=== PATIENT | female | born 1995 | race Caucasian/White ===

== ENCOUNTER → 2019-01-26 | Outpatient (CLI) | payer OTHER ==
--- NOTE | 2019-01-26 16:44 | Diagnostic Imaging Report ---
Indication: Left thigh pain AP and lateral views of the left femur are obtained. FINDINGS: No acute fracture or dislocation is identified. No abnormal lytic or sclerotic focus is seen, and there is no radiopaque foreign body. IMPRESSION: No acute abnormality. Dictated by: Dictated on workstation # [id number]
== END ==
LOC: RAD FS 16:27
PROVIDERS: ATTEND Family Medicine
DX: M79.652 Pain in left thigh (principal)
CPT/HCPCS: 73552

== ENCOUNTER 2019-10-12 21:44 | Emergency (ER) | payer MEDICAID, OTHER ==
[~2019-10-12] VITALS: Ht 167.7 cm; Wt 94.5 kg
[2019-10-12 22:15] LABS: BILIRUBIN,URINE NEGATIVE (NEGATIVE); CLARITY,URINE SLIGHTLY CLOUDY; COLOR,URINE YELLOW; GLUCOSE, URINE (UA) 2+ (NEGATIVE); HCG,QUALITATIVE URINE POSITIVE (NEGATIVE); KETONES,URINE TRACE (NEGATIVE); LEUKOCYTE ESTERASE ,URINE NEGATIVE (NEGATIVE); NITRITE,URINE NEGATIVE (NEGATIVE); PH,URINE 6.5 (5-9); PROTEIN,URINE NEGATIVE (NEGATIVE)
[2019-10-12 22:22] LABS: BACTERIA,URINE MODERATE /HPF; SQUAMOUS EPITHELIAL CELL,UR 25-50 /HPF
--- NOTE | 2019-10-12 22:50 | NUR ---
HEART TONES 154.
--- NOTE | 2019-10-12 23:03 | ED GU-Female ---
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 REPORTED THAT SHE HAS BEEN BEING TREATED FOR A UTI AND GIVEN 2 PILLS AND A CREAM THAT SHE DOES NOT KNOW THE NAME OF BY DOCTOR TOSCANO. THE UTI WAS A MONTH AGO SHE REPORTED. SHE STARTED HAVING A BURNING SENSATION THIS EVENING. Nursing Sepsis Screen: No Definite Risk Source: patient History of Present Illness Date Seen by Provider: Oct 12, 2019 Time Seen by Provider: 22:24 Initial Comments 24-year-old female presenting with complaints of burning pain that she noticed this evening when she tried getting in a cool bath. She has been using a cream in her vaginal area to help treat for rash and UTI. She is proximal 6 months and is to the end of December for her delivery. She denies any vaginal bleeding or discharge. She is not having any pain with urination. She has one spot at the top of her vagina that was causing a burning pain and burning sensation tonight when she tried to get in the bath. She denies any trauma or injury to her vaginal area. She did not bring th e cream with her and can not remember the name of the medicine. Allergies and Home Medications Allergies Coded Allergies: amoxicillin (Verified Allergy, Unknown, 10/12/19) Patient Home Medication List Home Medication List Reviewed: Yes Review of Systems Review of Systems Constitutional: No chills, No fever EENTM: no symptoms reported Respiratory: no symptoms reported Cardiovascular: no symptoms reported Gastrointestinal: no symptoms reported Genitourinary: see HPI Musculoskeletal: no symptoms reported Skin: see HPI Psychiatric/Neurological: No Symptoms Reported Past Sfhjffn-Tegmvj-Fyjtuz Hx Past Med/Social Hx: Reviewed Nursing Past Med/Soc Hx Patient Social History Recent Foreign Travel: No Contact w/Someone Who Travel: No Recent Infectious Disease Expo: No Recent Hopitalizations: No Physical Abuse: No Sexual Abuse: No Mistreated: No Fear: No Seasonal Allergies Seasonal Allergies: No Past Medical History Respiratory: No Cardiac: No Neurological: No : Yes Genitourinary: No Gastrointestinal: No Musculoskeletal: No Endocrine: No HEENT: No Integumentary: No Physical Exam Vital Signs Vital Signs - First Documented 10/12/19 22:15 Temp 36.8 Pulse 90 Resp 16 B/P (MAP) 113/65 (81) Pulse Ox 100 O2 Delivery Room Air Capillary Refill : Less Than 3 Seconds Height, Weight, BMI Height: '" Weight: lbs. oz. kg; 33.00 BMI Method: General Appearance: WD/WN, no apparent distress Gastrointestinal: normal bowel sounds, non tender, soft, other (gravid uterus with FHT in 150s) Pelvic: No discharge; lesions (3 mm superficial ulceration to left superior labia just above clitoral reid area. no drainage noted. no blisters or vesicles) Neurologic/Psychiatric: alert, normal mood/affect, oriented x 3 Progress/Results/Core Measures Suspected Sepsis Recent Fever Within 48 Hours: No Infection Criteria Present: None New/Unexplained Altered Menta: No Sepsis Screen: No Definite Risk SIRS Temperature: Pulse: 90 Respiratory Rate: 16 Blood Pressure 113 /65 Mean: 81 Results/Orders Lab Results Laboratory Tests Test 10/12/19 22:00 10/12/19 22:15 Range/Units Urine Color YELLOW Urine Clarity SLIGHTLY CLOUDY Urine pH 6.5 5-9 Urine Specific [place] 1.025 H 1.016-1.022 Urine Protein NEGATIVE NEGATIVE Urine Glucose (UA) 2+ H NEGATIVE Urine Ketones TRACE H NEGATIVE Urine Nitrite NEGATIVE NEGATIVE Urine Bilirubin NEGATIVE NEGATIVE Urine Urobilinogen 0.2 < = 1.0 MG/DL Urine Leukocyte Esterase NEGATIVE NEGATIVE Urine RBC (Auto) NEGATIVE NEGATIVE Urine RBC NONE /HPF Urine WBC 5-10 H /HPF Urine Squamous Epithelial Cells 25-50 H /HPF Urine Crystals NONE /LPF Urine Bacteria MODERATE H /HPF Urine Casts NONE /LPF Urine Mucus LARGE H /LPF Urine Culture Indicated YES Urine Test POSITIVE NEGATIVE My Orders Orders - CJ SINGH MD Ua Culture If Indicated (10/12/19 21:55) Hcg,Qualitative Urine (10/12/19 21:55) Neis Yariel Dna Urine Test (10/12/19 21:55) Chlamydia Trachomatis Urine (10/12/19 21:55) Urine Culture (10/12/19 22:00) Vital Signs/I&O 10/12/19 10/12/19 22:15 23:09 Temp 36.8 36.7 Pulse 90 88 Resp 16 16 B/P (MAP) 113/65 (81) 115/64 Pulse Ox 100 100 O2 Delivery Room Air Room Air Capillary Refill : Less Than 3 Seconds Blood Pressure Mean: 81 Progress Note : Progress Note d/w dr. Toscano and he thinks he was having the pt use a lotrisone cream so the skin might be thin from the medicine. have her use an antibiotic ointment to cover the area and help it heal. Tylenol for pain. Check with him in clinic for follow up. Culture pending on UA. She did have some glucose in her urine as well but had just drank a soda before coming to the ED. Departure Impression Primary Impression: Skin ulceration Qualified Codes: L98.491 - Non-pressure chronic ulcer of skin of other sites limited to breakdown of skin Additional Impression: Intrauterine , incidental Disposition: 01 HOME, SELF-CARE Condition: Stable Departure-Patient Inst. Decision time for Depature: 23:05 Referrals: RADHA TOSCANO MAXWELL MD (PCP/Family) Primary Care Physician Patient Instructions: Skin Abrasions (DC) Add. Discharge Instructions: Cover the area that sunshine with a thin layer of neosporin or triple antibiotic ointment 2-3 times a day to help it heal. Stop using the other cream that Dr. Toscano had previously prescribed. Call his office in the morning to arrange for a follow up appointment for a next available appointment to be seen for a check up. All discharge instructions reviewed with patient and/or family. Voiced understanding. CJ SINGH MD Oct 12, 2019 23:03
[2019-10-12 23:09] VITALS: BP 115/64
== END 2019-10-12 23:12 | disposition home or self-care (01) ==
LOC: EDUNIT# 21:44 → ER FS 21:47
DX: L98.491 Non-pressure chronic ulcer of skin of other sites limited to breakdown of skin (principal); Z33.1 Pregnant state, incidental; Z88.0 Allergy status to penicillin
CPT/HCPCS: 36415; 81000; 84703; 87088; 87491; 87591; 99282

== ENCOUNTER 2019-11-03 16:15 | Emergency (ER) | payer MEDICAID ==
[~2019-11-03] VITALS: Ht 167 cm; Wt 90.0 kg
[2019-11-03 16:41] LABS: CLARITY,URINE CLOUDY; COLOR,URINE YELLOW; PH,URINE 6.5 (5-9)
[2019-11-03 16:42] LABS: BACTERIA,URINE MODERATE /HPF; BILIRUBIN,URINE NEGATIVE (NEGATIVE); GLUCOSE, URINE (UA) TRACE (NEGATIVE); KETONES,URINE 1+ (NEGATIVE); LEUKOCYTE ESTERASE ,URINE 1+ (NEGATIVE); NITRITE,URINE NEGATIVE (NEGATIVE); PROTEIN,URINE TRACE (NEGATIVE)
--- NOTE | 2019-11-03 16:52 | ED GU-Female ---
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 REPORTS SHE IS [address] TOSCANO IS HER OB DR BUT SHE HAS NOT CONTACTED HIM. SHE REPORTS DARK BLOOD SPOTTING THIS AM ON HER PANTS AND WHEN WIPING. Nursing Sepsis Screen: No Definite Risk Source: patient Exam Limitations: no limitations History of Present Illness Date Seen by Provider: Nov 03, 2019 Time Seen by Provider: 04:30 Initial Comments 24 y/o @ 6months presents w vaginal bleeding since this morning. Denies any clots or tissue. Denies Uterine contractions. No fever, chills, nausea or dysuria. Pt states she fell yesterday landing on her back and left side Timing/Duration: this morning Activities at Onset: rest Associated Symptoms: denies symptoms Allergies and Home Medications Allergies Coded Allergies: amoxicillin (Verified Allergy, Unknown, 10/12/19) Patient Home Medication List Home Medication List Reviewed: Yes Review of Systems Review of Systems Constitutional: see HPI; No fever, No malaise, No weakness Respiratory: no symptoms reported; No cough, No dyspnea on exertion, No short of breath Cardiovascular: no symptoms reported, see HPI; No chest pain, No palpitations Gastrointestinal: no symptoms reported; No abdominal pain, No loss of appetite, No nausea, No vomiting Genitourinary: see HPI; denies dysuria, denies frequency, denies flank pain, denies hematuria : Yes Musculoskeletal: no symptoms reported Skin: no symptoms reported Past Ywjkrma-Bgbffj-Ljrmzr Hx Past Med/Social Hx: Reviewed Nursing Past Med/Soc Hx Patient Social History Alcohol Use: Denies Use Recreational Drug Use: No Smoking Status: Never a Smoker 2nd Hand Smoke Exposure: No Recent Foreign Travel: No Contact w/Someone Who Travel: No Recent Infectious Disease Expo: No Recent Hopitalizations: No Physical Abuse: No Sexual Abuse: No Mistreated: No Fear: No Seasonal Allergies Seasonal Allergies: No Past Medical History Respiratory: No Cardiac: No Neurological: No Genitourinary: No Gastrointestinal: No Musculoskeletal: No Endocrine: No HEENT: No Integumentary: No Physical Exam Vital Signs Vital Signs - First Documented 11/03/19 16:28 Temp 36.3 Pulse 86 Resp 18 B/P (MAP) 120/77 (91) Pulse Ox 98 O2 Delivery Room Air Capillary Refill : Less Than 3 Seconds Height, Weight, BMI Height: '" Weight: lbs. oz. kg; 32.00 BMI Method: General Appearance: WD/WN, no apparent distress Cardiovascular: regular rate, rhythm, no edema, no JVD Respiratory: chest non-tender, lungs clear Gastrointestinal: normal bowel sounds, non tender, soft; No guarding, No rebound; other (uterine size grossly consistent w dates "6 months") Genital/Rectal: other (vaginal exam deferred) Back: normal inspection, no CVA tenderness Progress/Results/Core Measures Suspected Sepsis Recent Fever Within 48 Hours: No Infection Criteria Present: None New/Unexplained Altered Menta: No Sepsis Screen: No Definite Risk SIRS Temperature: Pulse: 86 Respiratory Rate: 18 Blood Pressure 120 /77 Mean: 91 Results/Orders Lab Results Laboratory Tests Test 11/03/19 16:30 Range/Units Urine Color YELLOW Urine Clarity CLOUDY Urine pH 6.5 5-9 Urine Specific [place] 1.025 H 1.016-1.022 Urine Protein TRACE NEGATIVE Urine Glucose (UA) TRACE H NEGATIVE Urine Ketones 1+ H NEGATIVE Urine Nitrite NEGATIVE NEGATIVE Urine Bilirubin NEGATIVE NEGATIVE Urine Urobilinogen 0.2 < = 1.0 MG/DL Urine Leukocyte Esterase 1+ H NEGATIVE Urine RBC (Auto) 3+ H NEGATIVE Urine RBC 10-25 H /HPF Urine WBC 10-25 H /HPF Urine Squamous Epithelial Cells 10-25 H /HPF Urine Crystals NONE /LPF Urine Bacteria MODERATE H /HPF Urine Casts NONE /LPF Urine Mucus SMALL H /LPF Urine Culture Indicated YES My Orders Orders - DARLING VOGEL DO Heart Tones (11/03/19 16:26) Urinalysis (11/03/19 16:26) Urine Culture (11/03/19 16:30) Vital Signs/I&O 11/03/19 11/03/19 16:28 17:09 Temp 36.3 36.3 Pulse 86 86 Resp 18 18 B/P (MAP) 120/77 (91) 120/77 (91) Pulse Ox 98 98 O2 Delivery Room Air Capillary Refill : Less Than 3 Seconds Blood Pressure Mean: 91 Consults Consults : Consults Notes Called patient's OB (Dr Toscano) and discussed pt presentation and c/o vaginal bleeding w normal FHT's 130-140s. He advises to get an ultrasound if available ([place] or [place]) otherwise he can see in the office next week ( in [place] or Wednesday in [facility]). Departure Impression Primary Impression: Vaginal bleeding during Disposition: XFER SHT-TRM HOSP Condition: Stable Transfer Transfer Reason: Exceeds level of care Time Spoke to Accepting Phy: 17:03 Transfer Progress Notes Spoke to Dr Rivas (ER @ [place]) to see if they had US services available today and they do. Accepts for transfer @ 0205....ER to ER by POV. Patient stable. Transfer Time: 17:10 Method of Transfer: Private Vehicle Departure-Patient Inst. Referrals: SELF,ALEXA MARTIN (PCP/Family) Primary Care Physician Patient Instructions: Bleeding With (DC) Add. Discharge Instructions: Drive directly to [facility] and go to the ER for further evaluation and to get an Ultrasound. All discharge instructions reviewed with patient and/or family. Voiced understanding. DARLING VOGEL DO Nov 03, 2019 16:52
[2019-11-03 17:09] VITALS: BP 120/77
== END 2019-11-03 17:05 | disposition short-term general hospital (02) ==
LOC: EDUNIT# 16:15 → ER FS 16:17
DX: O46.92 Antepartum hemorrhage, unspecified, second trimester (principal); Z3A.00 Weeks of gestation of pregnancy not specified; Z88.0 Allergy status to penicillin
CPT/HCPCS: 81000; 87088

== ENCOUNTER 2020-02-17 07:38 | Emergency (ER) | payer MEDICAID ==
[~2020-02-17] VITALS: Ht 167 cm; Wt 84.1 kg
[2020-02-17 07:42] VITALS: BP 117/69
--- OUTSIDE RECORDS SUMMARY | 2020-02-17 07:43 | XMS REPORT ---
Author Author Keyla CANTU Organization [facility] Address [address] [place] [address] Care Team Providers Care Us Administrative Law Judge Name Role Phone MARISOL CANTU Unavailable PROBLEMS Type Condition ICD9-CM Code [id number] Code Onset Dates Condition S tatus SNOMED Code Problem Tobacco use disorder F17.200 Active 129712676 Problem Asthma J45.909 Active 778547198 Problem Allergic rhinitis J30.9 Active 61 515694 Problem Currently smokes tobacco Z72.0 Activ e 733407007 Problem Sleep disorder G47.9 Active 67043 005 Problem Hyperlipidemia, unspecified hyperlipidemia type E7 8.5 Active 30165361 Problem Missed period N92.6 Active 369424 00 Problem Diabetes mellitus type 2, uncomplicated E11.9 Active 95691553 Problem Migraine aura without headache G43.109 Active 016207545 Problem Type 2 diabetes mellitus E11.9 Activ e 24712656 Problem Obesity (BMI 30.0-34.9) E66.9 Active 176835682996326 Problem Attention deficit disorder of adult with hyperactivity F90.0 Active 74025003 Problem Type 1 diabetes mellitus with hyperglycemia E10.65 Active 953062058760046 Problem Type 1 diabetes mellitus with hyperglycemia E10.65 Active 769242939382669 Problem Hypoglycemia E16.2 Active 2243233 03 Problem Moderate depressive disorder F32.9 A ctive 226358361 ALLERGIES Substance Reaction Event Type Date Status Metformin HCl swelling Drug Allergy Dec, Active Amoxicillin hives Drug Allergy Dec, Active ENCOUNTERS Encounter Location Date Diagnosis [address] [id number] [address] Jan, [address] [id number], [place] [address] Dec, Moderate depressive disorder F32.9 ; Migraine aura without headache G43.109 and Obesity (BMI 30.0-34.9) E66.9 [facility] [address] [id number] [place] [address] Nov, Multiparity Z64.1 and Reques t for sterilization Z78.9 [facility] [address] [id number] [place] [address] Nov, [address] [id number] [place] [address] Nov, [address] [id number] [place] [address] Nov, [address] [id number] [place] [address] Nov, [address] [id number] [place] [address] Oct, [address] [id number] [address] Oct, Type 1 diabetes mellitus wit h hyperglycemia E10.[address] [id number], [place] [address] Oct, Vaginal itching N89.8 and En counter for supervision of other normal in first trimester Z34.81 [facility] [address] [id number] [place] [address] Sep, [facility] [address] [id number] [place] [address] Sep, Type 1 diabetes mellitus with hyperglyce andrei E10.[address] [id number] [place] [address] Sep, Encounter for supervision of other normal in first trimester Z34.[address] [id number] [place] [address] Sep, [facility] [address] [id number] [place] [address] Sep, [facility] [address] [id number] [place] [address] Sep, Currently smokes tobacco Z72 .0 ; Type 1 diabetes mellitus with hyperglycemia E10.65 ; Hypoglycemia E16.2 and Hyperglycemia during O99.810 [facility] [address] [id number] [place] [address] Sep, Diabetes mellitus type 2, un complicated E11.9 ; Tobacco use disorder F17.200 and Encounter for immunization Z23 [address] [id number] [place] [address] Aug, [address] [id number], [place] [address] Aug, [address] [id number], [place] [address] Aug, Encounter for supervision of other normal in first trimester Z34.81 and Diabetes mellitus type 2, uncomplicated E11.[address] [id number] [place] [address] Jul, [address] [id number] [place] [address] Jul, [address] [id number] [place] [address] Jul, Encounter for supervision of other normal in first trimester Z34.81 [facility] [address] [id number] [place] [address] Jul, Positive test Z32. 01 ; Missed period N92.6 and Abrasion of right lower leg, initial encounter S80.811A [address] [id number] [place] [address] Jun, Type 2 diabetes mellitus E11 .9 ; Fatigue, unspecified type R53.83 and Hyperlipidemia, unspecified hyperlipidemia type E78.5 [facility] [address] [facility] [id number] 00KS [place] [id number] Jun, Dentin caries K02.62 [facility] [address] [id number] [address] [id number] May, Dental examination Z01.20 [facility] [address] [id number] [address] [place] [id number] May, Dental examination Z01.20 [facility] [place] [facility] [address] [id number] [place] [address] May, Left foot pain M79.672 [facility] [address] [id number] [place] [address] May, Foot pain, left M79.[address] [id number], [place] [address] February, Hyperlipidemia, unspecified hyperlipidemia type E78.[address] [id number], [place] [address] February, Diabetes mellitus type 2, un complicated E11.[address] [id number], [place] [address] February, Diabetes mellitus type 2, un complicated E11.9 [facility] [address] [id number] [place] [address] Jan, Diarrhea of presumed infecti ous origin R19.[address] [id number], [place] [address] Jan, Pain of left thigh M79.652 [facility] [address] [id number] [place] [address] Dec, Diarrhea R19.[address] [id number], [place] [address] Dec, Sleep disorder G47.9 and Sle ep 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 [facility] [address] [id number], [place] [address] Dec, [facility] [address] [id number] [place] [address] Dec, [facility] [place] [address] [id number] [place] [address] Nov, [facility] [place] [address] [id number] [place] [address] Nov, [facility] [place] [address] [id number], [place] [address] Nov, [facility] [place] [address] [id number], [place] [address] Nov, Sleep disorder G47.9 ; Asthm a J45.909 ; Diabetes mellitus type 2, uncomplicated E11.9 and Tobacco use disorder F17.200 [facility] [place] [facility] [address] [id number] [place] [address] Nov, Lip swelling K13.0 and Oral lesion K13.70 [facility] [address] [facility] [id number] [address] [place] [address] Nov, [facility] [place] [address] [id number] [place] [address] Nov, [facility] [place] [address] [id number] [place] [address] Nov, [facility] [place] [facility] [address] [id number] [place] [address] Nov, Non-intractable vomiting wit hout nausea, unspecified vomiting type R11.11 and Lip swelling R22.0 [facility] [address] [facility] [id number] [address] [place] [address] Sep, [facility] [address] [facility] [id number] [address] [place] [address] Mar, [facility] [address] [facility] [id number] [address] [place] [address] Jan, [facility] [address] [id number] [address] [place] [address] Jan, [facility] [address] [id number] [address] [place] [address] Jan, [facility] [address] [id number] [address] [place] [address] Mar, [facility] [address] [id number] [address] [place] [address] Mar, [facility] [address] [id number] [address] [place] [address] February, [facility] [address] [id number] [address] [place] [address] February, [facility] [address] [id number] [address] [place] [address] February, [facility] [address] [id number] [address] [place] [address] February, [facility] [address] [id number] [address] [place] [address] Jan, [facility] [address] [id number] [address] [place] [address] Jan, [facility] [address] [id number] [address] [place] [address] Jan, [facility] [address] [id number] [address] [place] [address] Jan, [facility] [address] [id number] [address] [place] [address] Jun, IMMUNIZATIONS No Known Immunizations SOCIAL HISTORY Never Assessed REASON FOR VISIT Stomach ache x24 hr and Diarrhea x 24hr ... migdalia/kyle ( Requests Dr mclean for work ) PLAN OF CARE Activity Details Follow Up prn Reason: VITAL SIGNS Height 66 in 2019-01-15 Weight 193 lbs 2019-01-15 Temperature 99.1 degrees Fahrenheit 2019-01-15 Heart Rate 80 bpm 2019-01-15 Respiratory Rate 18 2019-01-15 Oximetry 99 % 2019-01-15 BMI 31.15 kg/m2 2019-01-15 Blood pressure systolic 120 mmHg 2019-01-15 Blood pressure diastolic 70 mmHg 2019-01-15 MEDICATIONS Medication Instructions Dosage Frequency Start Date End Date Duration S tatus Ibuprofen 200 MG Orally Three times a day 1 tablet with food or milk as needed 8h Active NovoLog 100 UNIT/ML Subcutaneous with dinner 5-7 U with B,L; 8-10 U 30 days Active Toujeo SoloStar 300 UNIT/ML Subcutaneous daily 24 U 24h 30 days Active Sleep Aid 25 MG Orally Once a day 1 tablet at bedtime as needed 24h 30 day(s) Active RESULTS No Results PROCEDURES No Known procedures INSTRUCTIONS MEDICATIONS ADMINISTERED No Known Medications MEDICAL (GENERAL) HISTORY Type Description Date Medical History Attention deficit disorder of adult with hyperactivity Medical History Currently smokes tobacco Medical History Asthma Medical History Allergic rhinitis Medical History Tobacco use disorder Medical History Currently smokes tobacco Medical History Type 2 diabetes mellitus Medical History Sleep disorder Medical History Hyperlipidemia, unspecified hyperlipidem ia type Surgical History myringotomy with ventilating tube Surgical History tooth pulled 06/21/2019 Surgical History [place] 2018 Hospitalization History childbirth Hospitalization History had a baby 11/04/2019
--- OUTSIDE RECORDS SUMMARY | 2020-02-17 07:44 | XMS REPORT ---
Author Author Keyla HERNANDEZ Organization [facility] Address [address] [place] [address] Care Team Providers Care Welder Assembler Name Role Phone MARY ANTWON Unavailable PROBLEMS Type Condition ICD9-CM Code [id number] Code Onset Dates Condition S tatus SNOMED Code Problem Allergic rhinitis J30.9 Active 61 544122 Problem Asthma J45.909 Active 896791161 Problem Currently smokes tobacco Z72.0 Activ e 853272500 Problem Sleep disorder G47.9 Active 76369 005 Problem Type 2 diabetes mellitus E11.9 Activ e 35901225 Problem Type 1 diabetes mellitus with hyperglycemia E10.65 Active 798721016225802 Problem Attention deficit disorder of adult with hyperactivity F90.0 Active 87671151 Problem Type 1 diabetes mellitus with hyperglycemia E10.65 Active 105909017621557 Problem Tobacco use disorder F17.200 Active 665370556 Problem Hyperlipidemia, unspecified hyperlipidemia type E7 8.5 Active 84775241 Problem Missed period N92.6 Active 285779 00 Problem Diabetes mellitus type 2, uncomplicated E11.9 Active 71844578 Problem Hypoglycemia E16.2 Active 7215581 03 ALLERGIES No Information ENCOUNTERS Encounter Location Date Diagnosis [address] [place] [address] Nov, [address] [place] [address] Nov, [address] [place] [address] Nov, [address] [place] [address] Nov, [address] [place] [address] Nov, [address] [place] [address] Oct, [address] [place] [address] Oct, Type 1 diabetes mellitus wit h hyperglycemia E10.65 [address] [place] [address] Oct, Vaginal itching N89.8 and En counter for supervision of other normal in first trimester Z34.81 [address] [place] [address] Sep, [facility] [address] [place] [id number] [place] [address] Sep, Type 1 diabetes mellitus with hyperglyce andrei E10.65 [address] [place] [address] Sep, Encounter for supervision of other normal in first trimester Z34.[address] [place] [address] Sep, [facility] [address] [address] [place] [id number] [place] [address] Sep, [address] [place] [address] Sep, Currently smokes tobacco Z72 .0 ; Type 1 diabetes mellitus with hyperglycemia E10.65 ; Hypoglycemia E16.2 and Hyperglycemia during O99.[address] [place] [address] Sep, Diabetes mellitus type 2, un complicated E11.9 ; Tobacco use disorder F17.200 and Encounter for immunization Z23 [address] [place] [address] Aug, [address] [place] [address] Aug, [address] [place] [address] Aug, Encounter for supervision of other normal in first trimester Z34.81 and Diabetes mellitus type 2, uncomplicated E11.[address] [place] [address] Jul, [facility] [address] [place] [address] Jul, [address] [place] [address] Jul, Encounter for supervision of other normal in first trimester Z34.[address] [facility] [address] [place] [address] Jul, Positive test Z32. 01 ; Missed period N92.6 and Abrasion of right lower leg, initial encounter S80.811A [address] [place] [address] Jun, Type 2 diabetes mellitus E11 .9 ; Fatigue, unspecified type R53.83 and Hyperlipidemia, unspecified hyperlipidemia type E78.5 [facility] [address] [id number] Jun, Dentin caries K02.62 [facility] [address] [id number] May, Dental examination Z01.20 [facility] [address] [id number] May, Dental examination Z01.[address] [facility] [place] [facility] [address] [place] [address] May, Left foot pain M79.672 [facility] IN [facility] [address] [place] [address] May, Foot pain, left M79.[address] [facility] [address] [place] [address] February, Hyperlipidemia, unspecified hyperlipidemia type E78.[address] [place] [address] February, Diabetes mellitus type 2, un complicated E11.9 [address] [place] [address] February, Diabetes mellitus type 2, un complicated E11.[address] [facility] [place] [facility] [address] [place] [address] 16 Jan, 2019 Diarrhea of presumed infecti ous origin R19.7 [address] [place] [address] Jan, Pain of left thigh M79.[address] [facility] [address] [place] [address] 31 Dec, 2018 Diarrhea R19.7 [address] [place] [address] Dec, Sleep disorder G47.9 and Sle ep 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 [facility] [address] [place] [address] Dec, [address] [place] [address] Dec, [address] [place] [address] Nov, [address] [place] [address] Nov, [address] [place] [address] Nov, [address] [place] [address] Nov, Sleep disorder G47.9 ; Asthm a J45.909 ; Diabetes mellitus type 2, uncomplicated E11.9 and Tobacco use disorder F17.[address] [facility] [place] [facility] [address] [place] [address] 14 Nov, 2018 Lip swelling K13.0 and Oral lesion K13.70 [facility] [address] [facility] [place] [address] Nov, [facility] [place] [facility] [address] [facility] [address] [place] [address] Nov, [facility] [place] [address] [place] [address] Nov, [facility] [place] [facility] [address] [place] [address] Nov, Non-intractable vomiting wit hout nausea, unspecified vomiting type R11.11 and Lip swelling R22.0 [facility] [id number] [place] [address] Sep, [facility] [id number] [place] [address] Mar, [facility] [id number] [place] [address] Jan, [facility] [id number] [place] [address] Jan, [facility] [address] [address] Jan, [facility] [id number] [place] [address] Mar, [facility] [id number] [place] [address] Mar, [facility] [id number] [place] [address] February, [facility] [id number] [place] [address] February, [facility] [id number] [place] [address] February, [facility] [id number] [place] [address] February, [facility] [address] [address] [place] [address] Jan, [facility] [address] [facility] [place] [address] Jan, [facility] [address] [facility] [place] [address] Jan, [facility] [address] [facility] [place] [address] Jan, [facility] [address] [facility] [place] [address] Jun, IMMUNIZATIONS No Known Immunizations SOCIAL HISTORY Never Assessed REASON FOR VISIT PLAN OF CARE VITAL SIGNS MEDICATIONS Unknown Medications RESULTS No Results PROCEDURES No Known procedures [...] Surgical History tooth pulled 06/21/2019 Surgical History [id number]
--- OUTSIDE RECORDS SUMMARY | 2020-02-17 07:44 | XMS REPORT ---
Author Author Keyla HERNANDEZ Organization [facility] Address [address] [place] [address] Care Team Providers Care Grocery Stock Clerk Name Role Phone ANTWON HERNANDEZ Unavailable PROBLEMS Type Condition ICD9-CM Code POT18-TL Code Onset Dates Condition S tatus SNOMED Code Problem Allergic rhinitis J30.9 Active 61 552631 Problem Asthma J45.909 Active 270073316 Problem Currently smokes tobacco Z72.0 Activ e 246674074 Problem Sleep disorder G47.9 Active 75390 005 Problem Type 2 diabetes mellitus E11.9 Activ e 27014581 Problem Type 1 diabetes mellitus with hyperglycemia E10.65 Active 032259654330509 Problem Attention deficit disorder of adult with hyperactivity F90.0 Active 91315762 Problem Type 1 diabetes mellitus with hyperglycemia E10.65 Active 034747288510062 Problem Tobacco use disorder F17.200 Active 158006932 Problem Hyperlipidemia, unspecified hyperlipidemia type E7 8.5 Active 30798716 Problem Missed period N92.6 Active 812400 00 Problem Diabetes mellitus type 2, uncomplicated E11.9 Active 88308981 Problem Hypoglycemia E16.2 Active 3770395 03 ALLERGIES No Information ENCOUNTERS Encounter Location Date Diagnosis [address] [place] [address] Jan, [address] [place] [address] Oct, [address] [place] [address] Oct, Type 1 diabetes mellitus wit h hyperglycemia E10.65 [address] [place] [address] Oct, Vaginal itching N89.8 and En counter for supervision of other normal in first trimester Z34.[address] [place] [address] 30 Sep, 2019 [facility] [address] [facility] [id number] [place] [address] Sep, Type 1 diabetes mellitus with hyperglyce andrei E10.[address] [place] [address] 16 Sep, 2019 Encounter for supervision of other normal in first trimester Z34.[address] [place] [address] Sep, [facility] [address] [facility] [id number] [place] [address] Sep, [address] [place] [address] Sep, Currently smokes tobacco Z72 .0 ; Type 1 diabetes mellitus with hyperglycemia E10.65 ; Hypoglycemia E16.2 and Hyperglycemia during O99.[address] [place] [address] Sep, Diabetes mellitus type 2, un complicated E11.9 ; Tobacco use disorder F17.200 and Encounter for immunization Z23 [facility] [address] [place] [address] Aug, [address] [place] [address] Aug, [address] [place] [address] Aug, Encounter for supervision of other normal in first trimester Z34.81 and Diabetes mellitus type 2, uncomplicated E11.[address] [place] [address] Jul, [address] [place] [address] Jul, [address] [place] [address] 15 Oct, 2019 Encounter for supervision of other normal in first trimester Z34.81 [facility] [facility] [address] [place] [address] Jul, Positive test Z32. 01 ; Missed period N92.6 and Abrasion of right lower leg, initial encounter S80.811A [address] [place] [address] Jun, Type 2 diabetes mellitus E11 .9 ; Fatigue, unspecified type R53.83 and Hyperlipidemia, unspecified hyperlipidemia type E78.5 [facility] [address] [id number] Jun, Dentin caries K02.62 [facility] [address] [id number] May, Dental examination Z01.20 [facility] [address] [id number] May, Dental examination Z01.20 [facility] [address] [place] [address] May, Left foot pain M79.672 [facility] [address] [place] [address] May, Foot pain, left M79.672 [address] [place] [address] February, Hyperlipidemia, unspecified hyperlipidemia type E78.[address] [place] [address] February, Diabetes mellitus type 2, un complicated E11.[address] [place] [address] February, Diabetes mellitus type 2, un complicated E11.9 [facility] [place] [facility] [address] [place] [address] Jan, Diarrhea of presumed infecti ous origin R19.[address] [place] [address] Jan, Pain of left thigh M79.652 [facility] [place] [facility] [address] [place] [address] Dec, Diarrhea R[address]7 [facility] [address] [place] [address] Dec, Sleep disorder G47.9 and Sle ep 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 [facility] [place] [address] [place] [address] Dec, [facility] [address] [place] [address] Dec, [facility] [address] [place] [address] Nov, [facility] [address] [place] [address] Nov, [facility] [place] [address] [place] [address] Nov, [facility] [address] [place] [address] Nov, Sleep disorder G47.9 ; Asthm a J45.909 ; Diabetes mellitus type 2, uncomplicated E11.9 and Tobacco use disorder F17.200 [facility] [place] [facility] [address] [place] [address] 14 Nov, 2018 Lip swelling K13.0 and Oral lesion K13.70 [facility] [address] [facility] [place] [address] Nov, [facility] [address] [place] [address] Nov, [facility] [address] [place] [address] Nov, [facility] [place] [facility] [address] [place] [address] Nov, Non-intractable vomiting wit hout nausea, unspecified vomiting type R11.11 and Lip swelling R22.0 [facility] [address] [place] [address] Sep, [facility] [address] [place] [address] Mar, [facility] [address] [address] Jan, [facility] [address] [address] Jan, [facility] [address] [address] Jan, [facility] [address] [address] Mar, [facility] [address] [address] Mar, [facility] [address] [place] [address] February, [facility] [address] [address] February, [facility] [address] [address] February, [facility] [address] [address] February, [facility] [address] [place] [address] Jan, [facility] [address] [address] Jan, [facility] [address] [place] [address] Jan, [facility] [address] [place] [address] Jan, [facility] [address] [place] [address] 16 Jun, 2013 IMMUNIZATIONS No Known Immunizations SOCIAL HISTORY Never Assessed REASON FOR VISIT PLAN OF CARE VITAL SIGNS Height 66 in 2014-02-05 Weight 167 lbs 2014-02-05 Temperature 96.8 degrees Fahrenheit 2014-02-05 Heart Rate 62 bpm 2014-02-05 Respiratory Rate 22 2014-02-05 Blood pressure systolic 110 mmHg 2014-02-05 Blood pressure diastolic 78 mmHg 2014-02-05 MEDICATIONS Unknown Medications RESULTS No Results PROCEDURES Procedure Date Ordered Result Body Site GLYCATED HEMOGLOBIN TEST February 05, 2014 MICROALBUMIN, SEMIQUANT February 05, 2014 URINE TEST February 05, 2014 COMPREHEN METABOLIC PANEL February 05, 2014 VENIPUNCT, ROUTINE* February 05, 2014 INSTRUCTIONS MEDICATIONS ADMINISTERED No Known Medications MEDICAL [...] Surgical History tooth pulled 06/21/2019 Surgical History [id number]
--- OUTSIDE RECORDS SUMMARY | 2020-02-17 07:44 | XMS REPORT ---
Author Author Keyla Shaw Organization [facility] Address [address] [place] [address] Care Team Providers Care Electrician Technician Name Role Phone LORENZO Shaw Unavailable PROBLEMS Type Condition ICD9-CM Code AOI80-LZ Code Onset Dates Condition S tatus SNOMED Code Problem Allergic rhinitis J30.9 Active 61 494598 Problem Asthma J45.909 Active 581398413 Problem Currently smokes tobacco Z72.0 Activ e 303548259 Problem Sleep disorder G47.9 Active 46189 005 Problem Type 2 diabetes mellitus E11.9 Activ e 87333859 Problem Type 1 diabetes mellitus with hyperglycemia E10.65 Active 073168949582212 Problem Attention deficit disorder of adult with hyperactivity F90.0 Active 68683393 Problem Type 1 diabetes mellitus with hyperglycemia E10.65 Active 616641015270483 Problem Tobacco use disorder F17.200 Active 227984700 Problem Hyperlipidemia, unspecified hyperlipidemia type E7 8.5 Active 07824885 Problem Missed period N92.6 Active 778214 00 Problem Diabetes mellitus type 2, uncomplicated E11.9 Active 62435287 Problem Hypoglycemia E16.2 Active 1232500 03 ALLERGIES No Information ENCOUNTERS Encounter Location Date Diagnosis [address] [place] [address] Jan, [address] [place] [address] Nov, [address] [place] [address] Oct, [address] [place] [address] Oct, Type 1 diabetes mellitus wit h hyperglycemia E10.65 [address] [place] [address] Oct, Vaginal itching N89.8 and En counter for supervision of other normal in first trimester Z34.[address] [place] [address] Sep, [facility] [address] [facility] [id number] [place] [address] Sep, Type 1 diabetes mellitus with hyperglyce andrei E10.[address] [place] [address] Sep, Encounter for supervision of other normal in first trimester Z34.[address] [place] [address] Sep, [facility] [address] [facility] [id number] [place] [address] Sep, [address] [place] [address] Sep, Currently smokes tobacco Z72 .0 ; Type 1 diabetes mellitus with hyperglycemia E10.65 ; Hypoglycemia E16.2 and Hyperglycemia during O99.[address] [place] [address] Sep, Diabetes mellitus type 2, un complicated E11.9 ; Tobacco use disorder F17.200 and Encounter for immunization Z23 [facility] [address] [place] [address] Aug, [address] [place] [address] Aug, [address] [place] [address] Aug, Encounter for supervision of other normal in first trimester Z34.81 and Diabetes mellitus type 2, uncomplicated E11.[address] [place] [address] Jul, [address] [place] [address] Jul, [facility] [address] [place] [address] Jul, Encounter for supervision of other normal in first trimester Z34.81 [facility] [place] [facility] [address] [place] [address] Jul, Positive test Z32. 01 ; Missed period N92.6 and Abrasion of right lower leg, initial encounter S80.811A [address] [place] [address] Jun, Type 2 diabetes mellitus E11 .9 ; Fatigue, unspecified type R53.83 and Hyperlipidemia, unspecified hyperlipidemia type E78.5 [facility] [address] [id number] Jun, Dentin caries K02.62 [facility] [address] [id number] May, Dental examination Z01.20 [facility] [address] [id number] May, Dental examination Z01.20 [facility] [address] [place] [address] May, Left foot pain M79.672 [facility] [address] [place] [address] May, Foot pain, left M79.[address] [place] [address] February, Hyperlipidemia, unspecified hyperlipidemia type E78.5 [address] [place] [address] February, Diabetes mellitus type 2, un complicated E11.9 [address] [place] [address] February, Diabetes mellitus type 2, un complicated E11.9 [facility] [address] [place] [address] Jan, Diarrhea of presumed infecti ous origin R19.7 [facility] [place] [address] [place] [address] Jan, Pain of left thigh M79.652 [facility] [place] [facility] [address] [place] [address] Dec, Diarrhea R19.7 [facility] [address] [place] [address] Dec, Sleep disorder G47.9 and Sle ep 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 [facility] [address] [place] [address] Dec, [facility] [address] [place] [address] Dec, [facility] [address] [place] [address] Nov, [facility] [address] [place] [address] Nov, [facility] [address] [place] [address] Nov, [facility] [address] [place] [address] Nov, Sleep disorder G47.9 ; Asthm a J45.909 ; Diabetes mellitus type 2, uncomplicated E11.9 and Tobacco use disorder F17.200 [facility] [place] [facility] [address] [place] [address] 14 Nov, 2018 Lip swelling K13.0 and Oral lesion K13.70 [facility] [address] [id number] [place] [address] Nov, [facility] [address] [place] [address] Nov, [facility] [address] [place] [address] Nov, [facility] [place] [facility] [address] [facility] [address] [place] [address] Nov, Non-intractable vomiting wit hout nausea, unspecified vomiting type R11.11 and Lip swelling R22.0 [facility] [address] [id number] [place] [address] Sep, [facility] [id number] [place] [address] Mar, [facility] [id number] [place] [address] Jan, [facility] [id number] [place] [address] 14 Jan, 2015 [facility] [id number] [place] [address] Jan, [facility] [id number] [place] [address] Mar, [facility] [id number] [place] [address] Mar, [facility] [id number] [place] [address] February, [facility] [id number] [place] [address] February, [facility] [id number] [place] [address] February, [facility] [id number] [place] [address] February, [facility] [id number] [place] [address] Jan, [facility] [id number] [place] [address] Jan, [facility] [id number] [place] [address] Jan, [facility] [id number] [place] [address] Jan, [facility] [address] [facility] [id number] [place] [address] 16 Jun, 2013 IMMUNIZATIONS No Known Immunizations SOCIAL HISTORY Never Assessed REASON FOR VISIT PLAN OF CARE VITAL SIGNS Height 66 in 2014-03-01 Weight 166.38 lbs 2014-03-01 Temperature 96.8 degrees Fahrenheit 2014-03-01 Heart Rate 68 bpm 2014-03-01 Respiratory Rate 20 2014-03-01 Blood pressure systolic 98 mmHg 2014-03-01 Blood pressure diastolic 62 mmHg 2014-03-01 MEDICATIONS Unknown Medications RESULTS No Results PROCEDURES Procedure Date Ordered Result Body Site URINE TEST March 01, 2014 INSTRUCTIONS MEDICATIONS ADMINISTERED No Known Medications [...] Surgical History tooth pulled 06/21/2019 Surgical History [email or web address]
--- OUTSIDE RECORDS SUMMARY | 2020-02-17 07:44 | XMS REPORT ---
Author Author Keyla HERNANDEZ Organization [facility] Address [address] [place] [address] Care Team Providers Care Retoucher Name Role Phone MARY ANTWON Unavailable PROBLEMS Type Condition ICD9-CM Code IKA05-GW Code Onset Dates Condition S tatus SNOMED Code Problem Allergic rhinitis J30.9 Active 61 976007 Problem Asthma J45.909 Active 081241062 Problem Currently smokes tobacco Z72.0 Activ e 171741411 Problem Sleep disorder G47.9 Active 46741 005 Problem Type 2 diabetes mellitus E11.9 Activ e 64987692 Problem Type 1 diabetes mellitus with hyperglycemia E10.65 Active 022466803768616 Problem Attention deficit disorder of adult with hyperactivity F90.0 Active 65042470 Problem Type 1 diabetes mellitus with hyperglycemia E10.65 Active 519050990267365 Problem Tobacco use disorder F17.200 Active 659210805 Problem Hyperlipidemia, unspecified hyperlipidemia type E7 8.5 Active 01074337 Problem Missed period N92.6 Active 524182 00 Problem Diabetes mellitus type 2, uncomplicated E11.9 Active 21787917 Problem Hypoglycemia E16.2 Active 0956550 03 ALLERGIES No Information ENCOUNTERS Encounter Location Date Diagnosis [address] [place] [address] Jan, [address] [place] [address] Nov, [address] [place] [address] Nov, [address] [place] [address] Oct, [address] [place] [address] Oct, Type 1 diabetes mellitus wit h hyperglycemia E10.[address] [place] [address] Oct, Vaginal itching N89.8 and En counter for supervision of other normal in first trimester Z34.81 [address] [place] [address] 30 Sep, 2019 [facility] [address] [facility] [id number] [place] [address] Sep, Type 1 diabetes mellitus with hyperglyce andrei E10.65 [address] [place] [address] 16 Sep, 2019 Encounter for supervision of other normal in first trimester Z34.81 [address] [place] [address] Sep, [facility] [address] [facility] [id number] [place] [address] Sep, [address] [place] [address] Sep, Currently smokes tobacco Z72 .0 ; Type 1 diabetes mellitus with hyperglycemia E10.65 ; Hypoglycemia E16.2 and Hyperglycemia during O99.[address] [place] [address] Sep, Diabetes mellitus type 2, un complicated E11.9 ; Tobacco use disorder F17.200 and Encounter for immunization Z23 [address] [place] [address] Aug, [address] [place] [address] Aug, [address] [place] [address] Aug, Encounter for supervision of other normal in first trimester Z34.81 and Diabetes mellitus type 2, uncomplicated E11.9 [address] [place] [address] Jul, [facility] [address] [place] [address] Jul, [address] [place] [address] Jul, Encounter for supervision of other normal in first trimester Z34.81 [facility] [place] [facility] [address] [place] [address] Jul, Positive test Z32. 01 ; Missed period N92.6 and Abrasion of right lower leg, initial encounter S80.811A [address] [place] [address] Jun, Type 2 diabetes mellitus E11 .9 ; Fatigue, unspecified type R53.83 and Hyperlipidemia, unspecified hyperlipidemia type E78.5 [facility] [address] [id number] Jun, Dentin caries K02.62 [facility] [address] [id number] May, Dental examination Z01.20 [facility] [address] [id number] May, Dental examination Z01.20 [facility] [place] [facility] [address] [place] [address] May, Left foot pain M79.672 [facility] [place] [facility] [address] [place] [address] May, Foot pain, left M79.672 [facility] [address] [place] [address] February, Hyperlipidemia, unspecified hyperlipidemia type E78.[address] [place] [address] February, Diabetes mellitus type 2, un complicated E11.[address] [place] [address] February, Diabetes mellitus type 2, un complicated E11.9 [facility] [place] [facility] [address] [place] [address] 16 Jan, 2019 Diarrhea of presumed infecti ous origin R19.7 [facility] [address] [place] [address] Jan, Pain of left thigh M79.652 [facility] [address] [place] [address] Dec, Diarrhea R19.7 [address] [place] [address] Dec, Sleep disorder G47.9 and Sle ep 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 [facility] [address] [place] [address] Dec, [address] [place] [address] Dec, [address] [place] [address] Nov, [address] [place] [address] Nov, [address] [place] [address] Nov, [address] [place] [address] Nov, Sleep disorder G47.9 ; Asthm a J45.909 ; Diabetes mellitus type 2, uncomplicated E11.9 and Tobacco use disorder F17.200 [facility] [place] [facility] [address] [place] [address] 14 Nov, 2018 Lip swelling K13.0 and Oral lesion K13.70 [facility] [address] [id number] [place] [address] Nov, [address] [place] [address] Nov, [facility] [place] [address] [place] [address] Nov, [facility] [place] [facility] [address] [place] [address] Nov, Non-intractable vomiting wit hout nausea, unspecified vomiting type R11.11 and Lip swelling R22.0 [facility] [id number] [place] [address] Sep, [facility] [address] [id number] [place] [address] Mar, [facility] [id number] [place] [address] Jan, [facility] [id number] [place] [address] Jan, [facility] [id number] [place] [address] Jan, [facility] [address] [id number] [place] [address] Mar, [facility] [id number] [place] [address] Mar, [facility] [id number] [place] [address] February, [facility] [id number] [place] [address] February, [facility] [id number] [place] [address] February, [facility] [id number] [place] [address] February, [facility] [id number] [place] [address] Jan, [facility] [id number] [place] [address] Jan, [facility] [id number] [place] [address] Jan, [facility] [address] [id number] [place] [address] Jan, [facility] [address] [facility] [id number] [place] [address] Jun, IMMUNIZATIONS No Known Immunizations SOCIAL HISTORY Never Assessed REASON FOR VISIT PLAN OF CARE VITAL SIGNS Height 66 in 2014-02-19 Weight 166 lbs 2014-02-19 Temperature 96.9 degrees Fahrenheit 2014-02-19 Heart Rate 60 bpm 2014-02-19 Respiratory Rate 20 2014-02-19 Blood pressure systolic 120 mmHg 2014-02-19 Blood pressure diastolic 72 mmHg 2014-02-19 MEDICATIONS Unknown Medications RESULTS No Results PROCEDURES [...] Surgical History tooth pulled 06/21/2019 Surgical History [place]2018
--- OUTSIDE RECORDS SUMMARY | 2020-02-17 07:45 | XMS REPORT | Continuity of Care Document ---
Author Organization Unknown Address Unknown Phone Unavailable Allergies Active Description Code Type Severity Reaction Onset Reported/Identified Relationship to Patient Clinical Status Yes amoxicillin [id number] Drug Aller gy Unknown N/A 10/12/2019 Medications There is no data. Problems Date Dx Coded Attending Type Code Diagnosis Diagnosed By 01/27/2019 ALEXA BECKER MD, Ot M79.65 2 PAIN IN LEFT THIGH 01/30/2019 ALEXA BECKER MD, Ot M79.65 2 PAIN IN LEFT THIGH 01/30/2019 ALEXA BECKER MD, Ot M79.65 2 PAIN IN LEFT THIGH 01/31/2019 SELF ALEXA MARTIN Ot M79.65 2 PAIN IN LEFT THIGH 01/31/2019 SELF ALEXA MARTIN Ot M79.65 2 PAIN IN LEFT THIGH 10/12/2019 SELF ALEXA MARTIN Ot M79.65 2 PAIN IN LEFT THIGH 10/12/2019 SELF ALEXA MARTIN Ot M79.65 2 PAIN IN LEFT THIGH 10/16/2019 CJ SINGH MD Ot L98.4 91 NON-PRS CHRONIC ULCER SKIN/ SITES LIMITE 10/16/2019 CJ SINGH MD Ot R10.2 PELVIC AND PERINEAL PAIN 10/16/2019 CJ SINGH MD Ot Z33.1 STATE, INCIDENTAL 10/16/2019 CJ SINGH MD Ot Z88.0 ALLERGY STATUS TO PENICILLIN 11/03/2019 ROVENSTINE DO, DARLING L Ot O46.92 ANTEPARTUM HEMORRHAGE, UNSPECIFIED, SECO 11/03/2019 ROVENSTINE DO, DARLING L Ot Z3A.00 WEEKS OF GESTATION OF NOT SPEC 11/03/2019 ROVENSTINE DO, DARLING L Ot Z88.0 ALLERGY STATUS TO PENICILLIN 11/07/2019 ROVENSTINE DO, DARLING L Ot O46.92 ANTEPARTUM HEMORRHAGE, UNSPECIFIED, SECO 11/07/2019 ROVENSTINE DO, DARLING L Ot Z3A.00 WEEKS OF GESTATION OF NOT SPEC 11/07/2019 ROVENSTINE DO, DARLING L Ot Z88.0 ALLERGY STATUS TO PENICILLIN Procedures There is no data. Results Test Result Range LIPID PANEL - 02/20/19 11:11 CHOLESTEROL, TOTAL 233 mg/dL <200 HDL CHOLESTEROL 48 mg/dL >50 TRIGLYCERIDES 210 mg/dL <150 LDL-CHOLESTEROL 150 mg/dL (calc) NRG CHOL/HDLC RATIO 4.9 (calc) <5.0 NON HDL CHOLESTEROL 185 mg/dL (calc) <13 0 CBC - 06/27/19 17:02 WHITE BLOOD CELL COUNT 7.7 Thousand/uL 3 .8-10.8 RED BLOOD CELL COUNT 4.27 Million/uL 3.8 0-5.10 HEMOGLOBIN 12.4 g/dL 11.7-15.5 HEMATOCRIT 36.3 % 35.0-45.0 MCV 85.0 fL 80.0-100.0 MCH 29.0 pg 27.0-33.0 MCHC 34.2 g/dL 32.0-36.0 RDW 12.9 % 11.0-15.0 PLATELET COUNT 302 Thousand/uL 140-400 MPV 10.0 fL 7.5-12.5 ABSOLUTE NEUTROPHILS 4720 cells/uL 1500- 7800 ABSOLUTE LYMPHOCYTES 2187 cells/uL 850-3 900 ABSOLUTE MONOCYTES 685 cells/uL 200-950 ABSOLUTE EOSINOPHILS 77 cells/uL 15-500 ABSOLUTE BASOPHILS 31 cells/uL 0-200 NEUTROPHILS 61.3 % NRG LYMPHOCYTES 28.4 % NRG MONOCYTES 8.9 % NRG EOSINOPHILS 1.0 % NRG BASOPHILS 0.4 % NRG GC/CHLAMYDIA (SWAB OR URINE)-RAPID - 00:00 CHLAMYDIA TRACHOMATIS RNA, TMA NOT DETECTED NOT DETECTED NEISSERIA GONORRHOEAE RNA, TMA NOT DETECTED NOT DETECTED COMMENT NRG ANTIBODY SCREEN - 08/01/19 17:06 ANTIBODY SCREEN, RBC W/REFL ID, TITER AND AG NO ANTIBODIES DETECTED NRG RUBELLA IMMUNE STATUS - 08/01/19 17:06 RUBELLA ANTIBODY (IGG) 2.92 index NRG A1C - 08/29/19 13:25 HEMOGLOBIN A1c 5.9 % of total Hgb <5.7 TEST IN QUESTION- MISSING REQUIRED INFO - 08/29/19 13:25 COMMENT NRG MISSING INFO: NRG COMMENT NRG CONTACT: NRG Complete urinalysis with reflex to cultu re - 10/12/19 22:00 Urine color determination YELLOW NRG Urine clarity determination SLIGHTLY CLOUDY NRG Urine pH measurement by test strip 6.5 5-9 Specific gravity of urine by test strip 1.025 1.016-1.022 Urine protein assay by test strip, semi-quantitative NEGATIVE NEGATIVE Urine glucose detection by automated test strip 2+ NEGATIVE Erythrocytes detection in urine sediment by light micr oscopy NEGATIVE NEGATIVE Urine ketones detection by automated test strip TR EHSAN NEGATIVE Urine nitrite detection by test strip NEGATIVE NEGATIVE Urine total bilirubin detection by test strip NEGA TIVE NEGATIVE Urine urobilinogen measurement by automated test strip (mass/volume) 0.2 mg/dL < = 1.0 Urine leukocyte esterase detection by dipstick NEG ATIVE NEGATIVE Automated urine sediment erythrocyte cou nt by microscopy (number/high power field) NONE NRG Automated urine sediment leukocyte count by microscopy (number/high power field) [HPF] NRG Bacteria detection in urine sediment by light microsco py MODERATE NRG Squamous epithelial cells detection in u rine sediment by light microscopy 25-50 NRG Crystals detection in urine sediment by light microsco py NONE NRG Casts detection in urine sediment by light microscopy NONE NRG Mucus detection in urine sediment by light microscopy LARGE NRG Complete urinalysis with reflex to culture YES NRG Urine beta human chorionic gonadotropin (hCG) measurement - 10/12/19 22:00 Urine beta human chorionic gonadotropin (hCG) measurem ent POSITIVE NEGATIVE Bacterial urine culture - 10/12/19 22:00 Bacterial urine culture [id number] NRG COLONY COUNT <10,000 NRG FTX;REPORTABLE RAPID ID TESTING AT [facility] NRG Chlamydia DNA amp probe, urine - 9 22:15 Chlamydia DNA amp probe, urine Not Detected Not Detected Urine Neisseria gonorrhoeae DNA assay - 10/12/19 22:15 Gonorrhea amp DNA-urine Not Detected No t Detected GC/CHLAMYDIA (SWAB OR URINE)-RAPID - 12/07 02:00 CHLAMYDIA TRACHOMATIS RNA, TMA NOT DETECTED NOT DETECTED NEISSERIA GONORRHOEAE RNA, TMA NOT DETECTED NOT DETECTED COMMENT NRG SYPHILIS (RPR W/ REFLEX CONFIRMATION) - 10/19/19 10:21 RPR (DX) W/REFL TITER AND CONFIRMATORY TESTING NON-REACTIVE NON-REACTIVE Complete urinalysis with reflex to cultu re - 11/03/19 16:30 Urine color determination YELLOW NRG Urine clarity determination CLOUDY NR G Urine pH measurement by test strip 6.5 5-9 Specific gravity of urine by test strip 1.025 1.016-1.022 Urine protein assay by test strip, semi-quantitative TRACE NEGATIVE Urine glucose detection by automated test strip TR EHSAN NEGATIVE Erythrocytes detection in urine sediment by light micr oscopy 3+ NEGATIVE Urine ketones detection by automated test strip 1+ NEGATIVE Urine nitrite detection by test strip NEGATIVE NEGATIVE Urine total bilirubin detection by test strip NEGA TIVE NEGATIVE Urine urobilinogen measurement by automated test strip (mass/volume) 0.2 mg/dL < = 1.0 Urine leukocyte esterase detection by dipstick 1+ NEGATIVE Automated urine sediment erythrocyte cou nt by microscopy (number/high power field) [HPF] NRG Automated urine sediment leukocyte count by microscopy (number/high power field) [HPF] NRG Bacteria detection in urine sediment by light microsco py MODERATE NRG Squamous epithelial cells detection in u rine sediment by light microscopy 10-25 NRG Crystals detection in urine sediment by light microsco py NONE NRG Casts detection in urine sediment by light microscopy NONE NRG Mucus detection in urine sediment by light microscopy SMALL NRG Complete urinalysis with reflex to culture YES NRG Bacterial urine culture - 11/03/19 16:30 Bacterial urine culture 3 OR MORE NRG COLONY COUNT >100,000/ML NRG FTX;REPORTABLE GRAM POSITIVE ISOLATES; SUGGESTING NRG FREE TEXT ENTRY 2 PROBABLE COLLECTION CONTAMINATIO N WITH NRG FREE TEXT ENTRY 3 SKIN OMKAR. NO SUSCEPTIBILITY PE RFORMED. NR CMP - 02/09/20 10:31 GLUCOSE 159 mg/dL 65-99 UREA NITROGEN (BUN) 11 mg/dL 7-25 CREATININE 0.85 mg/dL 0.50-1.10 eGFR NON-AFR. [place] 95 mL/min/1.73m2 > OR = 60 eGFR 110 mL/min/1.73m2 > OR = 60 BUN/CREATININE RATIO NOT APPLICABLE (calc) 6-22 SODIUM 139 mmol/L 135-146 POTASSIUM 3.5 mmol/L 3.5-5.3 CHLORIDE 103 mmol/L 98-110 CARBON DIOXIDE 24 mmol/L 20-32 CALCIUM 9.4 mg/dL 8.6-10.2 PROTEIN, TOTAL 7.2 g/dL 6.1-8.1 ALBUMIN 4.4 g/dL 3.6-5.1 GLOBULIN 2.8 g/dL (calc) 1.9-3.7 ALBUMIN/GLOBULIN RATIO 1.6 (calc) 1.0-2. 5 BILIRUBIN, TOTAL 0.3 mg/dL 0.2-1.2 ALKALINE PHOSPHATASE 118 U/L 31-125 AST 69 U/L 10-30 ALT 86 U/L 6-29 A1C - 02/09/20 10:31 HEMOGLOBIN A1c 6.0 % of total Hgb <5.7 Encounters ACCT No. Visit Date/Time Discharge Status Pt. Type Provider Facility Loc./Unit Complaint [id number] 10/02/2019 08:00:00 10/02/2019 23:59: 59 CLS Outpatient [facility] [id number] 02/09/2020 10:00:00 Document Registration [id number] 10/19/2019 09:45:00 Document Registration [id number] 08/29/2019 13:00:00 Document Registration [id number] 08/01/2019 14:15:00 Document Registration [id number] 06/27/2019 15:20:00 Document Registration [id number] 02/20/2019 11:15:00 Document Registration [id number] 11/03/2019 16:17:00 17:05:00 DIS Emergency ROVENSTDARLING BRICEÑO DO [facility] ER FS SPOTTING BLOOD, FELL [id number] 10/12/2019 21:47:00 23:12:00 DIS Outpatient CJ SINGH MD [facility] ER FS VAGINAL PAIN [id number] 01/26/2019 16:27:00 23:59:59 CLS Outpatient SELF ALEXA MARTIN [facility] RAD FS M79.652
[2020-02-17] MEDS ORDERED: TOPI25TA10 (07:49)
[2020-02-17] MEDS ORDERED: TRAM50TA3 (07:49)
[2020-02-17] MEDS ORDERED: SERT50TA9 (07:49)
[2020-02-17] MEDS ORDERED: SUMA100T3 (07:49)
--- NOTE | 2020-02-17 07:57 | ED General ---
General Chief Complaint: General Problems/Pain Stated Complaint: SOB LAST NIGHT;LT LEG NUMBNESS Nursing Triage Note: States she had some difficulty breathing last night and her legs are numb, and her left leg is swollen now. Denies fevers and no shortness of breath currently. Is currently on antibiotics for a tooth infection and were started on the . Nursing Sepsis Screen: No Definite Risk Source of Information: Patient History of Present Illness Date Seen by Provider: February 17, 2020 Time Seen by Provider: 07:47 Initial Comments Patient is a 24 y/o female with PMH significant for depression and diabetes who comes to the ER this morning c/o leg swelling. Patient was recently placed on amoxicillin for treatment of dental infection. She has been taking one tablet daily instead of the prescribed two per day. She also states she has a known allergy to this medication and stopped taking it yesterday because it was causing some swelling in her legs. She also c/o some viral symptoms last night including one episode of emesis and a cough with some shortness of breath. These symptoms have resolved this am. No current dyspnea. No recent travel. Her primary concern today is a note for work b/c she called in sick today. Allergies and Home Medications Allergies Coded Allergies: amoxicillin (Verified Allergy, Unknown, 10/12/19) Patient Home Medication List Home Medication List Reviewed: Yes Review of Systems Review of Systems Constitutional: see HPI EENTM: no symptoms reported Respiratory: cough Cardiovascular: no symptoms reported Gastrointestinal: see HPI Musculoskeletal: see HPI Skin: no symptoms reported All Other Systems Reviewed Negative Unless Noted: Yes Past Ilfy[place]-Cuursw-Lrxjvd Hx Patient Social History Alcohol Use: Denies Use Recreational Drug Use: No Smoking Status: Current Everyday Smoker Type Used: Cigarettes 2nd Hand Smoke Exposure: No Recent Foreign Travel: No Contact w/Someone Who Travel: No Recent Infectious Disease Expo: No Recent Hopitalizations: No Seasonal Allergies Seasonal Allergies: No Past Medical History Surgeries: No Respiratory: No Cardiac: No Neurological: Yes Headaches /Migraines Genitourinary: No Gastrointestinal: No Musculoskeletal: No Endocrine: Yes Diabetes, Insulin dep HEENT: No Cancer: No Psychosocial: Yes Depression Integumentary: No Physical Exam Vital Signs Vital Signs - First Documented 02/17/20 07:42 Temp 36.6 Pulse 114 Resp 16 B/P (MAP) 117/69 (85) Pulse Ox 97 Capillary Refill : Less Than 3 Seconds Height, Weight, BMI Height: '" Weight: lbs. oz. kg; 30.00 BMI Method: General Appearance: No Apparent Distress, WD/WN HEENT: PERRL/EOMI, TMs Normal, Normal ENT Inspection Neck: Full Range of Motion Respiratory: Lungs Clear, Normal Breath Sounds Cardiovascular: Regular Rate, Rhythm, No Edema Gastrointestinal: Non Tender, Soft Extremity: Normal Capillary Refill Neurologic/Psychiatric: Alert, Oriented x3 Skin: Normal Color, Warm/Dry Progress/Results/Core Measures Suspected Sepsis Recent Fever Within 48 Hours: No Infection Criteria Present: Documented Infection New/Unexplained Altered Menta: No Sepsis Screen: No Definite Risk SIRS Temperature: Pulse: 114 Respiratory Rate: 16 Blood Pressure 117 /69 Mean: 85 Results/Orders Vital Signs/I&O 02/17/20 07:42 Temp 36.6 Pulse 114 Resp 16 B/P (MAP) 117/69 (85) Pulse Ox 97 Capillary Refill : Less Than 3 Seconds Blood Pressure Mean: 85 Progress Note : Time: 08:09 Progress Note Patient is evaluated in the ER briefly with complaints of some vague symptoms. She has been taking amoxicillin despite known allergy. No findings c/w allergic reaction and no complaints in HPI that sound suspicious for this. The swelling she reported in her legs is not present on exam. Her PE is negative. Blood glucose level is checked and stable. No fever. Patient is discharged to home with reassurance. I recommended she stop the amoxicillin if she feels it is causing her any problems. She denies dental pain or complaints today. Work release note for today is provided. Departure Impression Primary Impression: Medication side effect Disposition: 01 HOME, SELF-CARE Condition: Stable Departure-Patient Inst. Referrals: SELFALEXA MD (PCP/Family) Primary Care Physician TED LOZANO DO February 17, 2020 07:57
== END 2020-02-17 08:12 | disposition home or self-care (01) ==
LOC: EDUNIT# 07:38 → ER FS 07:40
DX: R06.02 Shortness of breath (principal); T36.0X5A Adverse effect of penicillins, initial encounter; E11.9 Type 2 diabetes mellitus without complications; F17.210 Nicotine dependence, cigarettes, uncomplicated; Z88.1 Allergy status to other antibiotic agents
CPT/HCPCS: 82962

== ENCOUNTER → 2020-05-17 | Outpatient (CLI) | payer MEDICAID ==
[~2020-05-17] MED LIST: SERT50TA9; SUMA100T3; TOPI25TA10; TRAM50TA3
--- NOTE | 2020-05-17 17:15 | Diagnostic Imaging Report ---
EXAM: LUMBAR SPINE 4 VIEW OR MORE INDICATION: Low back pain with left lower extremity radiculopathy. COMPARISON: None. FINDINGS: There are 5 lumbar-type vertebral bodies. Normal alignment. No fractures or pars defects. No substantial spondylotic change. The visualized pelvis is intact. IMPRESSION: Negative lumbar spine radiographs. Dictated by: Dictated on workstation # [id number]
== END ==
LOC: RAD FS 15:01
PROVIDERS: ATTEND Family Medicine
DX: M54.16 Radiculopathy, lumbar region (principal)
CPT/HCPCS: 72110

== ENCOUNTER 2020-07-15 19:40 | Emergency (ER) | payer MEDICAID ==
[~2020-07-15] VITALS: Ht 167 cm; Wt 94.0 kg
--- NOTE | 2020-07-15 20:07 | ED General ---
General Chief Complaint: Glucose Problems Stated Complaint: BLOOD SUGAR LEVELS HIGH,DIZZINESS Nursing Triage Note: Pt states her glucose has been running high the past few days. Nursing Sepsis Screen: No Definite Risk Source of Information: Patient, Old Records, RN/MD, RN Notes Reviewed History of Present Illness Date Seen by Provider: Jul 15, 2020 Time Seen by Provider: 19:50 Initial Comments This patient is a 24-year-old female presents to the emergency department requesting some diabetic education properly taking her insulin. patient states she just got her insulin refilled today and she took her units as prescribed and states that she checked her glucose at dinnertime tonight at 6 pm glucose was at 253. patient states her short acting insulin of 18 units and her long-acting insulin similar 18 units as prescribed by pcp. patient states that she had chicken izaiah and beans for dinner but did not take her insulin until about an hour after her meal and her glucose was around 420. she is now presented to the emergency department 2 hours postprandial. glucose upon arrival was 250 trending downward. she wanted to make sure that she was taking her insulin correctly. i did discuss at length with patient about different options. patient states that she has been running fasting glucose was over 300 getting a refill of her insulin today. her first dosages of insulin was tonight about an hour ago. we did discuss properly checking her glucoses before each meal and at bedtime. and acutely glucose log. patient will follow up with her primary care physician in the next day or 2 as scheduled to discuss her glucose log any adjustments in immediately to be made by her pcp. patient is continuing [place] as instructed. patient states understanding patient is discharged home per her request. patient was offered full medical screening exam including iv fluids and further evaluation patient declines. Timing/Duration: 1-3 Hours Associated Systoms: Denies Symptoms Allergies and Home Medications Allergies Coded Allergies: amoxicillin (Verified Allergy, Unknown, 10/12/19) Patient Home Medication List Home Medication List Reviewed: Yes Review of Systems Review of Systems Constitutional: No no symptoms reported; see HPI; No chills, No diaphoresis, No dizziness, No fever, No malaise, No weakness, No weight gain, No weight loss, No other EENTM: No see HPI, No no symptoms reported, No ear discharge, No hearing loss, No ear pain, No blurred vision, No double vision, No eye pain, No tearing, No vision loss, No dental problems, No hoarseness, No mouth pain, No mouth swelling, No epistaxis, No nose congestion, No nose pain, No throat pain, No throat swelling, No other Respiratory: No no symptoms reported, No see HPI, No cough, No dyspnea on exertion, No hemoptysis, No orthopnea, No phlegm, No short of breath, No stridor, No wheezing, No other Cardiovascular: No no symptoms reported, No see HPI, No chest pain, No edema, No Hx of Intervention, No palpitations, No syncope, No vascular heart diseas, No other Gastrointestinal: No RUQ, No LUQ, No RLQ, No LLQ, No no symptoms reported, No see HPI, No abdominal pain, No constipation, No diarrhea, No dysphagia, No hematemesis, No heartburn, No jaundice, No loss of appetite, No melena, No nausea, No vomiting, No other Genitourinary: No no symptoms reported, No see HPI, No decreased output, No discharge, No dysuria, No frequency, No hematuria, No hesitancy, No incontinence, No nocturia, No pain, No other Musculoskeletal: No no symptoms reported, No see HPI, No back pain, No gout, No joint pain, No joint swelling, No muscle pain, No muscle stiffness, No muscle cramps, No muscle twitching, No muscle weakness, No neck pain, No other Skin: No no symptoms reported, No see HPI, No change in color, No change in hair/nails, No dryness, No hx of skin cancer, No lesions, No lumps, No pruritus, No rash, No other Immunological/Allergic: denies no symptoms reported, denies see HPI, denies food allergy, denies grass allergy, denies mold allergy, denies pollen allergy, denies HIV/AIDS, denies transplant All Other Systems Reviewed Negative Unless Noted: Yes Past Luphbsg-Eczxyg-Cqpiwq Hx Patient Social History Alcohol Use: Denies Use Recreational Drug Use: No Smoking Status: Current Everyday Smoker Type Used: Cigarettes 2nd Hand Smoke Exposure: No Recent Foreign Travel: No Contact w/Someone Who Travel: No Recent Infectious Disease Expo: No Recent Hopitalizations: No Physical Abuse: No Sexual Abuse: No Seasonal Allergies Seasonal Allergies: No Past Medical History Surgeries: No Respiratory: No Cardiac: No Neurological: Yes Headaches /Migraines Genitourinary: No Gastrointestinal: No Musculoskeletal: No Endocrine: Yes Diabetes, Insulin dep HEENT: No Cancer: No Psychosocial: Yes Depression Integumentary: No Physical Exam Vital Signs Vital Signs - First Documented 07/15/20 19:46 Temp 37.3 Pulse 85 Resp 18 B/P (MAP) 143/82 (102) Pulse Ox 98 O2 Delivery Room Air Capillary Refill : Less Than 3 Seconds Height, Weight, BMI Height: '" Weight: lbs. oz. kg; 33.00 BMI Method: General Appearance: No Apparent Distress, WD/WN HEENT: PERRL/EOMI, TMs Normal, Normal ENT Inspection, Pharynx Normal Neck: Full Range of Motion, Normal Inspection, Non Tender, Supple, Carotid Bruit Respiratory: Chest Non Tender, Lungs Clear, Normal Breath Sounds, No Accessory Muscle Use, No Respiratory Distress Cardiovascular: Regular Rate, Rhythm, No Edema, No Gallop, No JVD, No Murmur, Normal Peripheral Pulses Gastrointestinal: Normal Bowel Sounds, No Organomegaly, No Pulsatile Mass, Non Tender, Soft Back: Normal Inspection, No CVA Tenderness, No Vertebral Tenderness Extremity: Normal Capillary Refill, Normal Inspection, Normal Range of Motion, Non Tender, No Calf Tenderness, No Pedal Edema Neurologic/Psychiatric: Alert, Oriented x3, No Motor/Sensory Deficits, Normal Mood/Affect Skin: Normal Color, Warm/Dry Progress/Results/Core Measures Suspected Sepsis Recent Fever Within 48 Hours: No Infection Criteria Present: None New/Unexplained Altered Menta: No Sepsis Screen: No Definite Risk SIRS Temperature: Pulse: 85 Respiratory Rate: 18 Blood Pressure 143 /82 Mean: 102 Results/Orders Lab Results Laboratory Tests Test 07/15/20 19:50 Range/Units Glucometer 254 H 70-110 MG/DL Vital Signs/I&O 07/15/20 19:46 Temp 37.3 Pulse 85 Resp 18 B/P (MAP) 143/82 (102) Pulse Ox 98 O2 Delivery Room Air Capillary Refill : Less Than 3 Seconds Blood Pressure Mean: 102 Progress Note : Time: 20:05 Progress Note This patient is a 24-year-old female presents to the emergency department requesting some diabetic education properly taking her insulin. patient states she just got her insulin refilled today and she took her units as prescribed and states that she checked her glucose at dinnertime tonight at 6 pm glucose was at 253. patient states her short acting insulin of 18 units and her long-acting insulin similar 18 units as prescribed by pcp. patient states that she had chicken izaiah and beans for dinner but did not take her insulin until about an hour after her meal and her glucose was around 420. she is now presented to the emergency department 2 hours postprandial. glucose upon arrival was 250 trending downward. she wanted to make sure that she was taking her insulin correctly. i did discuss at length with patient about different options. patient states that she has been running fasting glucose was over 300 getting a refill of her insulin today. her first dosages of insulin was tonight about an hour ago. we did discuss properly checking her glucoses before each meal and at bedtime. and acutely glucose log. patient will follow up with her primary care physician in the next day or 2 as scheduled to discuss her glucose log any adjustments in immediately to be made by her pcp. patient is continuing [place] as instructed. patient states understanding patient is discharged home per her request. patient was offered full medical screening exam including iv fluids and further evaluation patient declines. Departure Impression Primary Impression: Diabetes mellitus Additional Impression: Hyperglycemia Disposition: 01 HOME, SELF-CARE Condition: Stable Departure-Patient Inst. Referrals: SELF,ALEXA MARTIN (PCP/Family) Primary Care Physician Patient Instructions: Diabetes Type 1, Adult (DC) Add. Discharge Instructions: Continue her glucose log. Continue checking her blood glucose before each meal and at bedtime. Continue to count carbs as instructed by her PCP. Take medications as instructed by your PCP in 2 real of reevaluation with PCP. Return to the emerge department symptoms failed to improve or worsen. Monitor glucose night before bedtime to avoid hypoglycemia. All discharge instructions reviewed with patient and/or family. Voiced understanding. TED GLOVER MD Jul 15, 2020 20:07
[2020-07-15 20:16] VITALS: BP 143/82
== END 2020-07-15 20:16 | disposition home or self-care (01) ==
LOC: EDUNIT# 19:40 → ER FS 19:41
DX: E11.65 Type 2 diabetes mellitus with hyperglycemia (principal); F17.210 Nicotine dependence, cigarettes, uncomplicated; Z79.4 Long term (current) use of insulin; Z88.1 Allergy status to other antibiotic agents
CPT/HCPCS: 82962

== ENCOUNTER 2020-07-23 11:46 | Emergency (ER) | payer MEDICAID ==
[~2020-07-23] VITALS: Ht 167 cm; Wt 100.0 kg
[2020-07-23] MEDS ORDERED: NS IV 1000 ML 1,000 ML IV STA (11:52)
--- NOTE | 2020-07-23 11:57 | ED General ---
General Stated Complaint: HYPERGLYCEMIA; NAUSEA; LT LEG SWELLING Source of Information: Patient, RN/MD, RN Notes Reviewed History of Present Illness Date Seen by Provider: Jul 23, 2020 Time Seen by Provider: 11:50 Initial Comments This patient is a 24-year-old female presents to the emergency department with complaint of hyperglycemia. Patient states that she also believes that she's been vomiting up blood but cannot specify. Patient does not appear to be acutely sick. Good pink skin no signs of anemia. Patient also states that she feels like her left leg is swollen. Multiple vague complaints. Patient appears to be borderline MR. Patient also states that she has started on antibiotics yesterday for a urinary tract infection. Patient states that she took 29 units of insulin at 9 AM. Due to hyperglycemia. Associated Systoms: Nausea/Vomiting Allergies and Home Medications Allergies Coded Allergies: amoxicillin (Verified Allergy, Unknown, 10/12/19) Patient Home Medication List Home Medication List Reviewed: Yes Review of Systems Review of Systems Constitutional: No no symptoms reported; see HPI; No chills, No diaphoresis, No dizziness, No fever, No malaise, No weakness, No weight gain, No weight loss, No other EENTM: No see HPI, No no symptoms reported, No ear discharge, No hearing loss, No ear pain, No blurred vision, No double vision, No eye pain, No tearing, No vision loss, No dental problems, No hoarseness, No mouth pain, No mouth swelling, No epistaxis, No nose congestion, No nose pain, No throat pain, No throat swelling, No other Respiratory: No no symptoms reported, No see HPI, No cough, No dyspnea on exertion, No hemoptysis, No orthopnea, No phlegm, No short of breath, No stridor, No wheezing, No other Cardiovascular: No no symptoms reported, No see HPI, No chest pain, No edema, No Hx of Intervention, No palpitations, No syncope, No vascular heart diseas, No other Gastrointestinal: No RUQ, No LUQ, No RLQ, No LLQ, No no symptoms reported; see HPI; No abdominal pain, No constipation, No diarrhea, No dysphagia, No hematem esis, No heartburn, No jaundice, No loss of appetite, No melena; nausea, vomiting; No other Genitourinary: No no symptoms reported, No see HPI, No decreased output, No discharge, No dysuria, No frequency, No hematuria, No hesitancy, No incontinence, No nocturia, No pain, No other Musculoskeletal: No no symptoms reported, No see HPI, No back pain, No gout, No joint pain, No joint swelling, No muscle pain, No muscle stiffness, No muscle cramps, No muscle twitching, No muscle weakness, No neck pain, No other Skin: No no symptoms reported, No see HPI, No change in color, No change in hair/nails, No dryness, No hx of skin cancer, No lesions, No lumps, No pruritus, No rash, No other All Other Systems Reviewed Negative Unless Noted: Yes Past Lebqgdv-Umpdgr-Gtcouq Hx Patient Social History Type Used: Cigarettes 2nd Hand Smoke Exposure: No Recent Foreign Travel: No Contact w/Someone Who Travel: No Recent Hopitalizations: No Seasonal Allergies Seasonal Allergies: No Past Medical History Surgeries: No Respiratory: No Cardiac: No Neurological: Yes Headaches /Migraines Genitourinary: No Gastrointestinal: No Musculoskeletal: No Endocrine: Yes Diabetes, Insulin dep HEENT: No Cancer: No Psychosocial: Yes Depression Integumentary: No Physical Exam Vital Signs Vital Signs - First Documented 07/23/20 12:04 Temp 36.5 Pulse 79 Resp 18 B/P (MAP) 132/88 (103) Pulse Ox 99 O2 Delivery Room Air Capillary Refill : Height, Weight, BMI Height: '" Weight: lbs. oz. kg; 33.00 BMI Method: General Appearance: No Apparent Distress, WD/WN Neck: Full Range of Motion, Normal Inspection, Non Tender, Supple Respiratory: Chest Non Tender, Lungs Clear, Normal Breath Sounds, No Accessory Muscle Use, No Respiratory Distress Cardiovascular: Regular Rate, Rhythm, No Edema, No Gallop, No JVD, No Murmur, Normal Peripheral Pulses Gastrointestinal: Normal Bowel Sounds, No Organomegaly, No Pulsatile Mass, Non Tender, Soft Extremity: Normal Capillary Refill, Normal Inspection, Normal Range of Motion, Non Tender, No Calf Tenderness, No Pedal Edema Neurologic/Psychiatric: Alert, Oriented x3, No Motor/Sensory Deficits, Normal Mood/Affect Progress/Results/Core Measures Suspected Sepsis SIRS Temperature: Pulse: Respiratory Rate: Laboratory Tests 07/23/20 12:00: White Blood Count 7.0 Blood Pressure / Mean: Laboratory Tests 07/23/20 12:00: Creatinine 0.72, Platelet Count 225, Total Bilirubin 0.3 Results/Orders Lab Results Laboratory Tests Test 07/23/20 11:50 07/23/20 12:00 07/23/20 12:02 Range/Units Urine Color YELLOW Urine Clarity CLEAR Urine pH 5.5 5-9 Urine Specific [place] >=1.030 1.016-1.022 Urine Protein NEGATIVE NEGATIVE Urine Glucose (UA) 2+ H NEGATIVE Urine Ketones TRACE H NEGATIVE Urine Nitrite NEGATIVE NEGATIVE Urine Bilirubin NEGATIVE NEGATIVE Urine Urobilinogen 0.2 < = 1.0 MG/DL Urine Leukocyte Esterase 1+ H NEGATIVE Urine RBC (Auto) NEGATIVE NEGATIVE Urine RBC 0-2 /HPF Urine WBC 25-50 H /HPF Urine Squamous Epithelial Cells 10-25 H /HPF Urine Crystals NONE /LPF Urine Bacteria TRACE /HPF Urine Casts NONE /LPF Urine Mucus SMALL H /LPF Urine Culture Indicated YES White Blood Count 7.0 4.3-11.0 10^3/uL Red Blood Count 5.04 4.35-5.85 10^6/uL Hemoglobin 13.8 11.5-16.0 G/DL Hematocrit 42 35-52 % Mean Corpuscular Volume 83 80-99 FL Mean Corpuscular Hemoglobin 27 25-34 PG Mean Corpuscular Hemoglobin Concent 27 L 32-36 G/DL Red Cell Distribution Width 14.8 H 10.0-14.5 % Platelet Count 225 130-400 10^3/uL Mean Platelet Volume 10.5 H 7.4-10.4 FL Immature Granulocyte % (Auto) 0 % Neutrophils (%) (Auto) 60 42-75 % Lymphocytes (%) (Auto) 31 12-44 % Monocytes (%) (Auto) 5 0-12 % Eosinophils (%) (Auto) 3 0-10 % Basophils (%) (Auto) 0 0-10 % Neutrophils # (Auto) 4.3 1.8-7.8 X 10^3 Lymphocytes # (Auto) 2.2 1.0-4.0 X 10^3 Monocytes # (Auto) 0.4 0.0-1.0 X 10^3 Eosinophils # (Auto) 0.2 0.0-0.3 10^3/uL Basophils # (Auto) 0.0 0.0-0.1 10^3/uL Immature Granulocyte # (Auto) 0.0 0.0-0.1 10^3/uL Sodium Level 139 135-145 MMOL/L Potassium Level 4.1 3.6-5.0 MMOL/L Chloride Level 104 98-107 MMOL/L Carbon Dioxide Level 22 21-32 MMOL/L Anion Gap 13 5-14 MMOL/L Blood Urea Nitrogen 18 7-18 MG/DL Creatinine 0.72 0.60-1.30 MG/DL Estimat Glomerular Filtration Rate > 60 BUN/Creatinine Ratio 25 Glucose Level 244 H 70-105 MG/DL Calcium Level 9.3 8.5-10.1 MG/DL Corrected Calcium 9.1 8.5-10.1 MG/DL Total Bilirubin 0.3 0.1-1.0 MG/DL Aspartate Amino Transf (AST/SGOT) 51 H 5-34 U/L Alanine Aminotransferase (ALT/SGPT) 31 0-55 U/L Alkaline Phosphatase 112 40-136 U/L Total Protein 7.2 6.4-8.2 GM/DL Albumin 4.2 3.2-4.5 GM/DL Glucometer 228 H 70-110 MG/DL My Orders Orders - TED GLOVER MD Ed Iv/Invasive Line Start (07/23/20 11:52) Cbc With Automated Diff (07/23/20 11:52) Comprehensive Metabolic Panel (07/23/20 11:52) Urinalysis (07/23/20 11:52) Ns Iv 1000 Ml (Sodium Chloride 0.9%) (07/23/20 11:52) Ondansetron Injection (Zofran Injectio (07/23/20 12:00) Urine Culture (07/23/20 11:50) Vital Signs/I&O 07/23/20 12:04 Temp 36.5 Pulse 79 Resp 18 B/P (MAP) 132/88 (103) Pulse Ox 99 O2 Delivery Room Air Capillary Refill : Progress Note : Time: 13:12 Progress Note Negative evaluation for any acute findings in the emergency department. Glucose 224. Patient was recently diagnosed with UTI yesterday and is on antibiotics for the same. Patient is to continue all home antibiotics for urinary tract infection. Continue your insulin as scheduled with your PCP check glucose regular before meals and at bedtime. Encourage by mouth fluids. Departure Impression Primary Impression: General medical exam Additional Impressions: Hyperglycemia UTI (urinary tract infection) Disposition: HOME, SELF-CARE Condition: Stable Departure-Patient Inst. Decision time for Depature: 13:13 Referrals: SELF,ALEXA MARTIN (PCP/Family) Primary Care Physician Patient Instructions: Diabetes and Diet, Hyperglycemia, Adult (DC) Add. Discharge Instructions: Patient is to continue all home antibiotics for urinary tract infection. Continue your insulin as scheduled with your PCP check glucose regular before meals and at bedtime. Encourage by mouth fluids. TED GLOVER MD Jul 23, 2020 11:57
[2020-07-23] MEDS ORDERED: ONDANSETRON 4 MG/2 ML (SDV) Z0FRAN IVP ONE (12:00)
[2020-07-23 12:08] LABS: BILIRUBIN,URINE NEGATIVE (NEGATIVE); CLARITY,URINE CLEAR; COLOR,URINE YELLOW; GLUCOSE, URINE (UA) 2+ (NEGATIVE); KETONES,URINE TRACE (NEGATIVE); LEUKOCYTE ESTERASE ,URINE 1+ (NEGATIVE); NITRITE,URINE NEGATIVE (NEGATIVE); PH,URINE 5.5 (5-9); PROTEIN,URINE NEGATIVE (NEGATIVE); RBC,URINE 0-2 /HPF; WBC,URINE 25-50 /HPF
[2020-07-23 12:09] LABS: BACTERIA,URINE TRACE /HPF
[2020-07-23 12:37] LABS: HEMATOCRIT 42 % (35-52); HEMOGLOBIN 13.8 G/DL (11.5-16.0); MEAN CORPUSCULAR HEMOGLOBIN 27 PG (25-34); MEAN CORPUSCULAR VOLUME 83 FL (80-99)
[2020-07-23 12:38] LABS: BASOPHILS % (AUTO) 0 % (0-10); EOSINOPHILS # (AUTO) 0.2 10^3/uL (0.0-0.3); EOSINOPHILS % (AUTO) 3 % (0-10); LYMPHOCYTES # (AUTO) 2.2 X 10^3 (1.0-4.0); LYMPHOCYTES % (AUTO) 31 % (12-44); MEAN CORPUSCULAR HGB CONC 27 G/DL (32-36); MEAN PLATELET VOLUME 10.5 FL (7.4-10.4); MONOCYTES # (AUTO) 0.4 X 10^3 (0.0-1.0); MONOCYTES % (AUTO) 5 % (0-12); NEUTROPHILS # (AUTO) 4.3 X 10^3 (1.8-7.8); NEUTROPHILS % (AUTO) 60 % (42-75); PLATELET COUNT 225 10^3/uL (130-400)
[2020-07-23 13:03] LABS: BUN/CREATININE RATIO 25; CARBON DIOXIDE 22 MMOL/L (21-32); CHLORIDE 104 MMOL/L (98-107); CREATININE SERUM 0.72 MG/DL (0.60-1.30); GFR ESTIMATED > 60; POTASSIUM 4.1 MMOL/L (3.6-5.0); SODIUM 139 MMOL/L (135-145)
[2020-07-23 13:04] LABS: ALANINE AMINOTRANSFERASE 31 U/L (0-55); ALBUMIN 4.2 GM/DL (3.2-4.5); ALKALINE PHOSPHATASE 112 U/L (40-136); BILIRUBIN,TOTAL 0.3 MG/DL (0.1-1.0); CALCIUM 9.3 MG/DL (8.5-10.1); GLUCOSE 244 MG/DL (70-105); TOTAL PROTEIN 7.2 GM/DL (6.4-8.2)
[2020-07-23 13:19] VITALS: BP 132/86
== END 2020-07-23 13:20 | disposition home or self-care (01) ==
LOC: EDUNIT# 11:46 → ER FS 11:47
DX: N39.0 Urinary tract infection, site not specified (principal); E11.65 Type 2 diabetes mellitus with hyperglycemia; Z79.4 Long term (current) use of insulin; Z88.1 Allergy status to other antibiotic agents
CPT/HCPCS: 36415; 80053; 81000; 82962; 85025; 87088

== ENCOUNTER 2020-07-26 13:17 | Emergency (ER) | payer OTHER, MEDICAID ==
[~2020-07-26] VITALS: Ht 167.7 cm; Wt 95.5 kg
[2020-07-26] MEDS ORDERED: KETOROLAC 60 MG/2 ML VIAL IM STA (14:40)
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
[2020-07-26] MEDS ORDERED: IBUP-1780 PO (15:26)
[2020-07-26 15:40] VITALS: BP 127/72
== END 2020-07-26 15:40 | disposition home or self-care (01) ==
LOC: EDUNIT# 13:17 → ER FS 13:18
DX: S00.431A Contusion of right ear, initial encounter (principal); S40.011A Contusion of right shoulder, initial encounter; R40.2410 Glasgow coma scale score 13-15, unspecified time; Z88.1 Allergy status to other antibiotic agents; V89.2XXA Person injured in unspecified motor-vehicle accident, traffic, initial encounter
CPT/HCPCS: 70450; 72125; 73030; 82962

== ENCOUNTER 2021-10-04 10:34 | Emergency (ER) | payer MEDICAID ==
[~2021-10-04] VITALS: Ht 160 cm; Wt 82.0 kg
[~2021-10-04 10:34] MED LIST changes: +IBUP-1780 PO; +SERT-413; -SERT50TA9
--- NOTE | 2021-10-04 10:45 | ED Headache ---
General Chief Complaint: Head/Cervical Problems Stated Complaint: HEAD INJURY,HEADACHE Source: patient History of Present Illness Date Seen by Provider: Oct 04, 2021 Time Seen by Provider: 10:36 Initial Comments 26yoF with PMH of DM on insulin coming in for headache. Wednesday at work stood up and hit the back of her head on a machine she was working with. Did not pass out and remembers all events. Has not had any episodes of nausea or vomiting. Has been taking Tylenol which has been taking the edge off the headache but did not take it yet today. Has had a headache since. Headache seems moderate, towards the back of her head, aching. Decreased appetite since. Sleeping well since then. Denies vision/hearing changes. Of note, her glucose has been around 120 and she says she has been doing okay with her diabetes management. LMP is today. Allergies and Home Medications Allergies Coded Allergies: amoxicillin (Verified Allergy, Unknown, 10/12/19) Patient Home Medication List Home Medication List Reviewed: Yes Ibuprofen (Ibuprofen) 800 Mg Tablet, 800 MG PO Q8H PRN for PAIN Prescribed by: CJ SINGH on 07/26/20 1526 Sertraline HCl (Sertraline HCl) 50 Mg Tablet, (Reported) Entered as Reported by: CRAIG CRUZ on 02/17/20 0749 Sumatriptan Succinate (Sumatriptan Succinate) 100 Mg Tablet, (Reported) Entered as Reported by: CRAIG CRUZ on 02/17/20 0749 Topiramate (Topiramate) 25 Mg Tablet, (Reported) Entered as Reported by: CRAIG CRUZ on 02/17/20 0749 Tramadol HCl (Tramadol HCl) 50 Mg Tablet, (Reported) Entered as Reported by: CRAIG CRUZ on 02/17/20 0749 Review of Systems Review of Systems Constitutional: No chills, No fever Eyes: Denies Blurred Vision Ears, Nose, Mouth, Throat: no symptoms reported Respiratory: No cough, No short of breath Cardiovascular: No chest pain Gastrointestinal: No abdominal pain, No nausea, No vomiting Genitourinary: no symptoms reported Musculoskeletal: no symptoms reported Skin: no symptoms reported All Other Systems Reviewed Negative Unless Noted: Yes Past Tjqhmvp-Fzykcs-Gmtzwh Hx Patient Social History Tobacco Use?: Yes Use of E-Cig and/or Vaping dev: No Substance use?: No Alcohol Use?: No Pt feels they are or have been: No Seasonal Allergies Seasonal Allergies: No Past Medical History Surgeries: Yes Tubal Ligation Respiratory: No Cardiac: No Neurological: Yes Headaches /Migraines Genitourinary: No Gastrointestinal: No Musculoskeletal: No Endocrine: Yes Diabetes, Insulin dep HEENT: No Cancer: No Psychosocial: Yes Depression Integumentary: No Physical Exam Vital Signs Vital Signs - First Documented 10/04/21 10:40 Temp 36.5 Pulse 93 Resp 16 B/P (MAP) 128/85 (99) Pulse Ox 97 O2 Delivery Room Air Capillary Refill : Height, Weight, BMI Height: '" Weight: lbs. oz. kg; 33.00 BMI Method: General Appearance: WD/WN, no apparent distress HEENT: PERRL/EOMI, normal ENT inspection, pharynx normal Neck: non-tender, full range of motion, supple, normal inspection Cardiovascular: regular rate, rhythm, no edema, no murmur Respiratory: chest non-tender, lungs clear, normal breath sounds, no respiratory distress, no accessory muscle use Gastrointestinal: normal bowel sounds, non tender, soft; No distended, No guarding, No rebound Back: normal inspection, no CVA tenderness, no vertebral tenderness Extremities: normal range of motion, non-tender, normal inspection, no pedal edema, no calf tenderness, normal capillary refill Psychiatric: alert, oriented x 3 Crainal Nerves: normal hearing, normal speech, PERRL Coordination/Gait: normal finger to nose, normal gait Motor/Sensory: no motor deficit, no sensory deficit, no pronator drift Skin: normal color, warm/dry Lymphatic: no adenopathy Progress/Results/Core Measures Results/Orders My Orders Orders - CAROLYN RABAGO MD Prochlorperazine Tablet (Compazine Table (10/04/21 11:00) Diphenhydramine Tablet (Benadryl Tablet) (10/04/21 11:00) Ibuprofen Tablet (Motrin Tablet) (10/04/21 11:00) Acetaminophen Tablet (Tylenol Tablet) (10/04/21 11:00) Vital Signs/I&O 10/04/21 10:40 Temp 36.5 Pulse 93 Resp 16 B/P (MAP) 128/85 (99) Pulse Ox 97 O2 Delivery Room Air Progress Progress Note : Progress Note 26-year-old female with above history coming in after hitting her head roughly 5 to 6 days ago and now with a headache. ABCs were intact and vitals were stable on presentation with a GCS of 15. Neuro exam completely normal. She is [place] head imaging rule negative and I do not believe we need a CT of her head. She just wants medications for her headache which she was given oral medications. I believe she is stable for discharge with outpatient follow-up. She was sent home with strict return precautions. Departure Impression Primary Impression: Concussion Qualified Codes: S06.0X0A - Concussion without loss of consciousness, initial encounter Disposition: HOME, SELF-CARE Condition: Stable Departure-Patient Inst. Decision time for Depature: 10:57 Referrals: ALEXA BECKER MD (PCP/Family) Primary Care Physician Patient Instructions: Concussion, Adult ED Add. Discharge Instructions: You are seen in the emergency department for your headache. Fortunately, your neuro exam and exam otherwise is good and you do not have any significant injury in your brain. You do have a concussion however which can take some time to get better. Drink plenty of fluids and take ibuprofen or Tylenol for your headache. CAROLYN RABAGO MD Oct 04, 2021 10:45
[2021-10-04] MEDS ORDERED: PROCHLORPERAZINE 10 MG TAB (COMPAZINE) PO ONE (11:00)
[2021-10-04] MEDS ORDERED: IBUPROFEN 600 MG (MOTRIN) TAB PO ONE (11:00)
[2021-10-04] MEDS ORDERED: ACETAMINOPHEN 500 MG TAB (TYLENOL) PO ONE (11:00)
[2021-10-04] MEDS ORDERED: diphenhydrAMINE 25 MG TAB (BENADRYL) PO ONE (11:00)
[2021-10-04 11:04] VITALS: BP 128/85
== END 2021-10-04 11:04 | disposition home or self-care (01) ==
LOC: EDUNIT# 10:34 → ER FS 10:36
DX: S06.0X0A Concussion without loss of consciousness, initial encounter (principal); F32.9 Major depressive disorder, single episode, unspecified; E11.9 Type 2 diabetes mellitus without complications; Z79.899 Other long term (current) drug therapy; Z79.4 Long term (current) use of insulin; W22.8XXA Striking against or struck by other objects, initial encounter
CPT/HCPCS: 99283

== ENCOUNTER 2022-11-22 13:09 | Emergency (ER) | payer MEDICAID ==
[2022-11-22 13:13] VITALS: BP 109/74
[2022-11-22] MEDS ORDERED: ONDANSETRON 4 MG (ZOFRAN) ORAL DISSOLVE TAB PO STA (13:21)
[2022-11-22 13:38] LABS: BILIRUBIN,URINE NEGATIVE (NEGATIVE); CLARITY,URINE CLEAR; COLOR,URINE YELLOW; GLUCOSE, URINE (UA) 3+ (NEGATIVE); KETONES,URINE NEGATIVE (NEGATIVE); LEUKOCYTE ESTERASE ,URINE NEGATIVE (NEGATIVE); NITRITE,URINE NEGATIVE (NEGATIVE); PROTEIN,URINE NEGATIVE (NEGATIVE)
[2022-11-22 13:45] LABS: BACTERIA,URINE LARGE /HPF; SQUAMOUS EPITHELIAL CELL,UR 25-50 /HPF
[2022-11-22] MEDS ORDERED: ONDA4TAB11 SL ×2 (13:45→13:59)
--- NOTE | 2022-11-22 13:46 | ED GI ---
General Chief Complaint: Abdominal/GI Problems Stated Complaint: N/V Source of Information: Patient Exam Limitations: No Limitations History of Present Illness Date Seen by Provider: Nov 22, 2022 Time Seen by Provider: 13:14 Initial Comments 27-year-old female that is diabetic coming in due to 1 day of nonbloody nonbilious vomiting. She was sent home from work and came here. Denies any fever, diarrhea, abdominal pain, chest pain, shortness of breath, fever, chills, weakness, numbness, or any other concerns. LMP just over a week ago. Also denies any dysuria or hematuria. States her blood sugar has been 300 in the mornings which is chronic for her. Otherwise denying any other acute complaints. Allergies and Home Medications Allergies Coded Allergies: amoxicillin (Verified Allergy, Unknown, 10/12/19) Patient Home Medication List Home Medication List Reviewed: Yes Ibuprofen (Ibuprofen) 800 Mg Tablet, 800 MG PO Q8H PRN for PAIN Prescribed by: CJ SINGH on 07/26/20 1526 Ondansetron (Ondansetron Odt) 4 Mg Tab.rapdis, 4 MG SL Q6H PRN for NAUSEA/VOMITING Prescribed by: CAROLYN RABAGO on 11/22/22 1345 Sertraline HCl (Sertraline HCl) 50 Mg Tablet, (Reported) Entered as Reported by: CRAIG CRUZ on 02/17/20 0749 Sumatriptan Succinate (Sumatriptan Succinate) 100 Mg Tablet, (Reported) Entered as Reported by: CRAIG CRUZ on 02/17/2049 Topiramate (Topiramate) 25 Mg Tablet, (Reported) Entered as Reported by: CRAIG CRUZ on 02/17/20 0749 Tramadol HCl (Tramadol HCl) 50 Mg Tablet, (Reported) Entered as Reported by: CRAIG CRUZ on 02/17/20 0749 Review of Systems Review of Systems Constitutional: No fever EENTM: No Symptoms Reported Respiratory: No Symptoms Reported Cardiovascular: No Symptoms Reported Gastrointestinal: See HPI Genitourinary: No Symptoms Reported Musculoskeletal: no symptoms reported Skin: no symptoms reported Psychiatric/Neurological: No Symptoms Reported Endocrine: No Symptoms Reported Hematologic/Lymphatic: No Symptoms Reported All Other Systems Reviewed Negative Unless Noted: Yes Past Jimvrzb-Jrfoaw-Cehqps Hx Patient Social History Tobacco Use?: Yes Tobacco type used: Cigarettes Smoking Status: Current Everyday Smoker Use of E-Cig and/or Vaping dev: No Substance use?: No Alcohol Use?: No Pt feels they are or have been: No Seasonal Allergies Seasonal Allergies: No Past Medical History Surgery/Hospitalization HX: DM; Neuropathy Surgeries: Yes Tubal Ligation Respiratory: No Cardiac: No Neurological: Yes Headaches /Migraines Genitourinary: No Gastrointestinal: No Musculoskeletal: No Endocrine: Yes Diabetes, Insulin dep HEENT: No Cancer: No Psychosocial: Yes Depression Integumentary: No Physical Exam Vital Signs Vital Signs - First Documented 11/22/22 13:13 Temp 36.1 Pulse 71 Resp 16 B/P (MAP) 109/74 (86) Pulse Ox 99 O2 Delivery Room Air Capillary Refill : Height/Weight/BMI Height: '" Weight: lbs. oz. kg; 32.00 BMI Method: General Appearance: WD/WN, no apparent distress HEENT: PERRL/EOMI, normal ENT inspection, pharynx normal Neck: non-tender, full range of motion, supple, normal inspection Respiratory: chest non-tender, lungs clear, normal breath sounds, no respiratory distress, no accessory muscle use Cardiovascular: regular rate, rhythm, no edema, no murmur Gastrointestinal: normal bowel sounds, non tender, soft; No distended, No guarding, No rebound Extremities: normal range of motion, non-tender, normal inspection, no pedal edema, no calf tenderness, normal capillary refill Back: normal inspection, no CVA tenderness Neurologic/Psychiatric: no motor/sensory deficits, alert, normal mood/affect Skin: normal color, warm/dry Lymphatic: no adenopathy Progress/Results/Core Measures Results/Orders Lab Results Laboratory Tests Test 11/22/22 13:13 11/22/22 13:42 Range/Units Urine Color YELLOW Urine Clarity CLEAR Urine pH 6.0 5-9 Urine Specific [place] 1.020 1.016-1.022 Urine Protein NEGATIVE NEGATIVE Urine Glucose (UA) 3+ H NEGATIVE Urine Ketones NEGATIVE NEGATIVE Urine Nitrite NEGATIVE NEGATIVE Urine Bilirubin NEGATIVE NEGATIVE Urine Urobilinogen 0.2 < = 1.0 MG/DL Urine Leukocyte Esterase NEGATIVE NEGATIVE Urine RBC (Auto) NEGATIVE NEGATIVE Urine RBC 2-5 H /HPF Urine WBC 2-5 /HPF Urine Squamous Epithelial Cells 25-50 H /HPF Urine Crystals NONE /LPF Urine Bacteria LARGE H /HPF Urine Casts NONE /LPF Urine Mucus NEGATIVE /LPF Urine Culture Indicated NO Glucometer 226 H 70-110 MG/DL My Orders Orders - CAROLYN RABAGO MD Accucheck Stat ONCE (11/22/22 13:21) Urine Bedside (11/22/22 13:21) Influenza A And B By Pcr (11/22/22 13:21) Covid 19 Inhouse Test (11/22/22 13:21) Ondansetron Oral Dissolve Tab (Zofran (11/22/22 13:21) Ua Culture If Indicated (11/22/22 13:21) Vital Signs/I&O 11/22/22 13:13 Temp 36.1 Pulse 71 Resp 16 B/P (MAP) 109/74 (86) Pulse Ox 99 O2 Delivery Room Air Progress Progress Note : Progress Note 27-year-old female with above history coming in due to 1 day of nonbloody nonbilious vomiting. ABCs were intact and vitals were stable on presentation. Physical exam reassuring including a soft and nontender abdomen. Eroem-sc-fwsw glucose obtained and was 226 down from 300 earlier. Urinalysis as well as COVID and flu testing sent and are pending at this time. Urinalysis was sent to check for ketones mostly which were negative. She has no dysuria or urinary frequency. There is a large amount of bacteria in the urine, but given this was not the purpose of ordering the test, we will forego on sending antibiotics unless the culture comes back worrisome. Overall well-appearing and given the normal abdominal exam, CT abdomen pelvis not ordered . Given Zofran for nausea and will send a prescription for this. I will if she stable for discharge with outpatient follow-up. She was sent home with strict return precautions Of note, I discussed with the patient her high blood sugars in the morning. I recommended increasing her long-acting insulin if this is the case, but recommend discussing with her primary physician before she does anything like that. Departure Impression Primary Impression: Vomiting in adult Disposition: 01 HOME, SELF-CARE Condition: Stable Departure-Patient Inst. Decision time for Depature: 14:00 Referrals: PILY HAWLEY APRN (PCP) Primary Care Physician [facility] (Family) Primary Care Physician Patient Instructions: Nausea and Vomiting, Adult ED Add. Discharge Instructions: You likely have a GI bug causing the vomiting. Typically these last 24 hours 2 to 3 days. You may develop diarrhea and fever with it. Just try to keep up with fluids and go to work 24 hours after the last time he vomited. Nausea medicines were sent to your pharmacy. Otherwise take ibuprofen or Tylenol as needed for fever or pain. Please discuss with your doctor about your high blood sugars in the morning, and see if they want to raise your long-acting insulin dose. Scripts Ondansetron (Ondansetron Odt) 4 Mg Tab.rapdis 4 MG SL Q6H PRN for NAUSEA/VOMITING for 5 Days, #20 TAB Prov: CAROLYN RABAGO MD 11/22/22 Work/School Note: Work Release Form Date Seen in the Emergency Department: Nov 22, 2022 Return to Work: Nov 23, 2022 Restrictions: Return-No Vomiting(24hrs) CAROLYN RABAGO MD Nov 22, 2022 13:46
== END 2022-11-22 13:49 | disposition home or self-care (01) ==
LOC: EDUNIT# 13:09 → ER FS 13:12
DX: R11.2 Nausea with vomiting, unspecified (principal); F17.210 Nicotine dependence, cigarettes, uncomplicated; E11.9 Type 2 diabetes mellitus without complications; Z79.4 Long term (current) use of insulin; Z20.822 Contact with and (suspected) exposure to COVID-19
CPT/HCPCS: 81000; 82947; 84703; 87636